=== PATIENT | female | born 1940 | race Caucasian/White ===

== ENCOUNTER 2017-07-18 14:18 | Emergency (ER) | payer MEDICAID, MEDICARE ==
[2017-07-18] MEDS ORDERED: methylPREDNISolone 125 MG* 2 ML VIAL IV ONE (14:31)
[2017-07-18] MEDS ORDERED: Albuterol/Ipratropium NEB.SOL* Albuterol 2.5 MG/Ipratropium 0.5 MG 3 ML INH ONE ×2 (14:31→19:54)
[2017-07-18] MEDS ORDERED: NS 0.9% 1000 ML* 1,000 ML IV SCH (14:45)
[2017-07-18 15:07] LABS: INR 0.82 (0.77-1.02)
[2017-07-18 15:13] LABS: ABS Basophils 0.1 10^3/ul (0-0.2); ABS Eosinophils 0.6 10^3/ul (0-0.6); ABS Lymphocytes 1.4 10^3/ul (1.0-4.8); ABS Monocytes 0.7 10^3/ul (0-0.8); ABS Neutrophils 5.5 10^3/ul (1.5-7.7); ABS Nucleated RBC 0 10^3/ul; Eosinophil % 7.6 % (0-6); Hematocrit 31 % (35-47); Lymphocyte % 16.5 % (25-47); Mean Corpuscular HGB Conc 33 g/dl (31-36); Mean Corpuscular Hemoglobin 26 pg (27-31); Mean Corpuscular Volume 80 fL (80-97); Mean Platelet Volume 6.6 um3 (7.4-10.4); Nucleated Red Blood Cells % 0.1; Platelet Count 508 10^3/ul (150-450); Red Blood Count 3.87 10^6/ul (4.0-5.4); Red Cell Distribution Width 19 % (10.5-15); White Blood Count 8.2 10^3/ul (3.5-10.8)
[2017-07-18 15:16] LABS: EGFR Non-African American 101.6 (>60)
--- NOTE | 2017-07-18 15:51 | RAD ---
HISTORY: Shortness of breath COMPARISONS: December 29, 2013 VIEWS: 1: frontal portable view of the chest at 3:10 PM FINDINGS: LINES AND TUBES: None. CARDIOMEDIASTINAL SILHOUETTE: The cardiac silhouette is mildly enlarged. The cardiomediastinal silhouette is otherwise normal for portable technique. PLEURA: The costophrenic angles are sharp. No pleural abnormalities are noted. LUNG PARENCHYMA: The lungs are clear. ABDOMEN: The upper abdomen is clear. There is no subphrenic gas. Aortic stent graft is noted. BONES AND SOFT TISSUES: No bone or soft tissue abnormalities are noted. IMPRESSION: MILD CARDIOMEGALY
[2017-07-18] MEDS ORDERED: LORazepam INJ* 2 MG/ML 1 ML VIAL IV PUSH ONE (16:02)
[2017-07-18] MEDS ORDERED: Iohexol 300* (CONTRAST) 10 ML SDV IV ONE (16:18)
--- NOTE | 2017-07-18 17:46 | RAD ---
HISTORY: Headache COMPARISONS: None TECHNIQUE: Multiple contiguous axial CT scans were obtained of the head without intravenous contrast. FINDINGS: The study is limited by patient motion artifact. HEMORRHAGE/INFARCT: There is no hemorrhage or acute infarct. MASSES/SHIFT: There is no mass or shift. EXTRA-AXIAL SPACES: There are no extra-axial fluid collections. SULCI AND VENTRICLES: The sulci and ventricles are normal in size and position for the patient's stated age. CEREBRUM: There is hypoattenuation of the periventricular and subcortical white matter. There is a chronic lacunar infarct of left basal ganglia. BRAINSTEM: There are no focal parenchymal abnormalities. CEREBELLUM: There are no focal parenchymal abnormalities. VESSELS: The vessels are grossly normal. PARANASAL SINUSES: The paranasal sinuses are clear. ORBITS: The orbits are unremarkable. BONES AND SOFT TISSUE: No bone or soft tissue abnormalities are noted. OTHER: None IMPRESSION: NO ACUTE INTRACRANIAL PATHOLOGY. CHRONIC SMALL VESSEL ISCHEMIC CHANGE
--- NOTE | 2017-07-18 17:51 | RAD ---
CLINICAL HISTORY: Diffuse tenderness, diverticulitis COMPARISON: None TECHNIQUE: Multiple contiguous axial CT scans were obtained of the abdomen and pelvis after the administration of intravenous contrast. Coronal and sagittal multiplanar reformations are submitted for review. Oral contrast was administered. Delayed images were obtained through the abdomen. FINDINGS: LUNG BASES: The lung bases are clear. LIVER: The liver is normal in shape, size, contour, and attenuation. BILE DUCTS: There is no intrahepatic or extrahepatic biliary dilatation. GALLBLADDER: The gallbladder is normal, without pericholecystic inflammatory change. PANCREAS: The pancreas is normal, without mass or ductal dilatation. SPLEEN: Normal in size and appearance. UPPER GI TRACT: Evaluation of the gastrointestinal tract is limited by incomplete gastric distention. The upper GI tract is unremarkable. SMALL BOWEL AND MESENTERY: The small bowel is normal in contour, course, and caliber. There is no obstruction or dilatation. COLON: The colon is normal in contour, course, caliber. There is no pericolonic inflammatory change. ADRENALS: Normal bilaterally. KIDNEYS: A simple renal cyst is noted on the right. There is no appreciable hydronephrosis or nephrolithiasis. BLADDER: The bladder is smooth in contour. PELVIC ORGANS: The uterus and adnexa are grossly normal for technique. AORTA: The patient is status post aortic stent graft. IVC: Unremarkable LYMPH NODES: There is no lymphadenopathy by size criteria. ABDOMINAL WALL: There is no evidence for abdominal wall hernia. BONES AND SOFT TISSUES: Degenerative changes are noted. OTHER: None IMPRESSION: STATUS POST ABDOMINAL AORTIC STENT GRAFT. NO ACUTE CT PATHOLOGY OF THE VISUALIZED ABDOMEN OR PELVIS.
--- NOTE | 2017-07-18 18:43 | ED ---
Juan Toribio Stephanie, scribed for Phani Andrade on 07/18/17 at 1438 . Complex/Multi-Sys Presentation - HPI Summary HPI Summary: The pt is a 76 y/o F BIBA to the ED with c/o nausea that worsened on 07/12/17. Symptoms include SCHULER, abd pain, neck pain and cough. The pt denies CP. The pt states her symptoms have been chronic over the past 4 years however, all of her symptoms have worsened over the past 6 days. The pt has recently been diagnosed with hyponatremia. - History Of Current Complaint Time Seen by Provider: 07/18/17 14:25 Hx Obtained From: Patient, EMS Onset/Duration: Gradual Onset, Lasting Weeks - 1, Still Present Timing: Constant Severity Currently: Moderate Associated Signs And Symptoms: Positive: Headache, Cough, Abdominal Pain, Other - neck pain. Negative: Chest Pain - Allergies/Home Medications Allergies/Adverse Reactions: Allergies Allergy/AdvReac Type Severity Reaction Status Date / Time Penicillins Allergy Hives Verified 07/18/17 16:43 Home Medications: Home Medications Acetaminophen [Acetaminophen Extra Strength] 1,000 mg PO Q8H 07/18/17 [History Confirmed 07/18/17] Aspirin 81 mg CHEW TAB* [Aspirin Low Dose TAB*] 81 mg PO DAILY 07/18/17 [ History Confirmed 07/18/17] Budesonide NEB* [Pulmicort NEB*] 0.25 mg INH BID 07/18/17 [History Confirmed ] Cholecalciferol TAB* [Vitamin D TAB*] 4,000 unit PO DAILY 07/18/17 [History Confirmed 07/18/17] Levalbuterol 1.25MG/0.5ML NEB* [Xopenex 1.25 MG/0.5 ML NEB.AMIRA*] 1.25 mg INH Q8H 07/18/17 [History Confirmed 07/18/17] Melatonin (NF) [Meladox] 10 mg PO BEDTIME 07/18/17 [History Confirmed 07/18/17] Ondansetron TAB* [Zofran 4 MG Tab*] 4 mg PO Q8H 07/18/17 [History Confirmed ] Ranitidine TAB (NF) [Zantac TAB (NF)] 75 mg PO DAILY 07/18/17 [History Confirmed 07/18/17] Sodium Chloride TAB* 1 gm PO BID 07/18/17 [History Confirmed 07/18/17] Venlafaxine EXT RELEASE CAP* [Effexor Xr CAP*] 75 mg PO DAILY 07/18/17 [History Confirmed 07/18/17] PMH/Surg Hx/FS Hx/Imm Hx Endocrine/Hematology History: Denies: Hx Diabetes Cardiovascular History: Reports: Hx Angina Denies: Hx Hypertension Comment Only: Other Cardiovascular Problems/Disorders - AAA Repair Respiratory History: Reports: Hx Chronic Bronchitis, Hx Chronic Obstructive Pulmonary Disease (COPD) History: Denies: Hx Renal Disease EENT History: Denies: Hx Deafness Psychiatric History: Reports: Hx Anxiety, Hx Depression - Surgical History Surgery Procedure, Year, and Place: AAA repair. appy Hx Anesthesia Reactions: No Infectious Disease History: No Infectious Disease History: Denies: Traveled Outside the [place] in Last 30 Days - Family History Known Family History: Negative: Renal Disease - Social History Occupation: Retired Lives: [facility] Alcohol Use: None Hx Substance Use: No Substance Use Type: Reports: None Hx Tobacco Use: Yes Smoking Status (MU): Former Smoker Amount Used/How Often: 1 PPD Review of Systems Positive: Fever Negative: Chest Pain Positive: Cough Positive: Abdominal Pain, Nausea Positive: Other - neck pain Positive: Headache All Other Systems Reviewed And Are Negative: Yes Physical Exam - Summary Physical Exam Summary: Appearance: Well appearing, no pain distress Skin: warm, dry, reflects adequate perfusion Head/face: normal Eyes: EOMI, ALO ENT: dry mucus membranes Neck: supple, non-tender Respiratory: CTA, breath sounds present Cardiovascular: RRR, pulses symmetrical Abdomen: diffuse abd tenderness, soft Bowel: present Musculoskeletal: normal, strength/ROM intact Neuro: normal, sensory motor intact, A&Ox3 Triage Information Reviewed: Yes Vital Signs On Initial Exam: Initial Vitals Temp Pulse Resp BP Pulse Ox 99.9 F 93 17 145/75 90 07/18/17 14:29 07/18/17 14:29 07/18/17 14:29 07/18/17 14:29 07/18/17 14:29 Vital Signs Reviewed: Yes Diagnostics - Vital Signs Vital Signs Temp Pulse Resp BP Pulse Ox 07/18/17 14:29 99.9 F 93 17 145/75 90 - Laboratory Result Diagrams: 07/18/17 14:50 07/18/17 14:50 Lab Statement: Any lab studies that have been ordered have been reviewed, and results considered in the medical decision making process. - Radiology CXR Xray Interpretation: Positive (See Comments) Radiology Interpretation Completed By: Radiologist - MILD CARDIOMEGALY. ED physician has reviewed this report. - CT Brain CT Interpretation: Positive (See Comments) CT Interpretation Completed By: Radiologist - NO ACUTE INTRACRANIAL PATHOLOGY. CHRONIC SMALL VESSEL ISCHEMIC CHANGE. ED physician has reviewed this report. Abdomen/Pelvis CT Interpretation: No Acute Changes CT Interpretation Completed By: Radiologist - STATUS POST ABDOMINAL AORTIC STENT GRAFT. NO ACUTE CT PATHOLOGY OF THE VISUALIZED ABDOMEN OR PELVIS. ED physician has reviewed this report. - EKG 14:44 Cardiac Rate: NL EKG Rhythm: Sinus Rhythm - [address] Segment: Normal Ectopy: None EKG Interpretation: No acute changes Complex Multi-Symp Course/Dx Course Of Treatment: The pt is a 76 y/o F BIBA to the ED with c/o nausea that worsened on 07/12/17. Symptoms include SCHULER, neck pain and cough. The pt denies CP. The pt has recently been diagnosed with hyponatremia. This pt is a sign out to Dr. Joe at shift change pending UA and MHE. - Diagnoses Provider Diagnoses: Anxiety, Abdominal pain, Depression, Hyponatremia Discharge - Sign-Out/Discharge Documenting (check all that apply): Sign-Out Patient Signing out patient TO: Cece Joe - Pending UA and MHE. - Discharge Plan Condition: Stable Referrals: Nadia Messina PA [Primary Care Provider] - The documentation as recorded by the Juan william Stephanie accurately reflects the service I personally performed and the decisions made by , Phani Andrade.
[2017-07-18 18:48] LABS: Urine Appearance Clear; Urine Blood Negative (Negative); Urine Color Straw; Urine Ketones Negative (Negative); Urine Protein Negative (Negative); Urine Specific Gravity 1.019 (1.010-1.030); Urine Urobilinogen Negative (Negative)
[2017-07-18] MEDS ORDERED: ALPRAZolam TAB* 0.5 MG PO ONE (20:46)
--- NOTE | 2017-07-18 21:55 | ED ---
Flex Toribio Rebecca, scribed for Cece Joe MD on 07/18/17 at 2059 . Progress - Progress Note Progress Note: Pt was signed out by Dr. Andrade, pending disposition, awaiting MHE completion. Course/Dx - Course Course Of Treatment: Pt was signed out by Dr. Andrade, pending disposition, awaiting MHE completion. Upon completion of MHE, it has been determined by Dr. Teran (psychiatrist) that the pt may be D/C with Dx of anxiety. - Diagnoses Provider Diagnoses: Anxiety, Abdominal pain, Depression, Hyponatremia Discharge - Sign-Out/Discharge Documenting (check all that apply): Discharge/Admit/Transfer - Discharge, Receiving Sign-Out Receiving patient FROM: Phani Andrade - Discharge Plan Condition: Stable Disposition: HOME Referrals: Nadia Messina PA [Primary Care Provider] - The documentation as recorded by the Flex william Rebecca accurately reflects the service I personally performed and the decisions made by Tatyana caputo Abdul, MD.
[2017-07-18 22:21] VITALS: BP 97/58
--- NOTE | 2017-07-20 09:02 | PN ---
Progress Note - Progress Note Date of Service: 07/18/17 Note: Urine culture preliminary grew Morganella morganii UA otherwise negative in the ED Will await sensitivities prior to placing on medication. Feli Pelaez PA-C
--- NOTE | 2017-07-21 17:49 | PN ---
Progress Note - Progress Note Date of Service: 07/18/17 Note: Pt. was seen in the ER 07/18/17 for numerous complaints. Urine culture obtained at that time. Urine culture today is growing >100,000 morganella morganii with multi drug resistance. Urinalysis only showed small leukocytes. I spoke with Dr. Andrade, who actually saw pt. at initially visit, and he feels this is most likely a contaminant. No treatment initiated since pt. was asymptomatic.
== END 2017-07-18 22:20 | disposition home or self-care (01) ==
LOC: ED 14:18
DX: F41.9 Anxiety disorder, unspecified (principal); R10.9 Unspecified abdominal pain; F32.9 Major depressive disorder, single episode, unspecified; E87.1 Hypo-osmolality and hyponatremia; I51.7 Cardiomegaly; Z95.828 Presence of other vascular implants and grafts; Z88.0 Allergy status to penicillin; Z87.891 Personal history of nicotine dependence
CPT/HCPCS: 36415; 70450; 71045; 74177; 80053; 81003; 81015; 83605; 83880; 84484; 85025; 85610; 85730; 87077; 87086; 87186; 93005; 96374; 99285; A9270-GY; J2060; J2930; Q9967

== ENCOUNTER 2017-08-17 16:07 | Inpatient (IN) | payer MEDICARE, MEDICAID ==
[2017-08-17] MEDS ORDERED: NS 0.9% 1000 ML* 1,000 ML IV ONE (16:34)
[2017-08-17] MEDS ORDERED: methylPREDNISolone 125 MG* 2 ML VIAL IV ONE (16:34)
[2017-08-17] MEDS ORDERED: Azithromycin IV(*) 500 MG in NS 0.9% 250 ML* 250 ML IVPB ONE (16:34)
[2017-08-17] MEDS ORDERED: Albuterol/Ipratropium NEB.SOL* Albuterol 2.5 MG/Ipratropium 0.5 MG 3 ML INH ONE ×2 (16:34→16:36)
[2017-08-17 17:08] LABS: ABS Basophils 0.1 10^3/ul (0-0.2); ABS Eosinophils 1.2 10^3/ul (0-0.6); ABS Lymphocytes 1.5 10^3/ul (1.0-4.8); ABS Monocytes 0.4 10^3/ul (0-0.8); ABS Neutrophils 6.8 10^3/ul (1.5-7.7); ABS Nucleated RBC 0 10^3/ul; Eosinophil % 12.3 % (0-6); Hematocrit 32 % (35-47); Hemoglobin 10.5 g/dl (12.0-16.0); Lymphocyte % 15.3 % (25-47); Mean Corpuscular HGB Conc 33 g/dl (31-36); Mean Corpuscular Hemoglobin 28 pg (27-31); Mean Corpuscular Volume 84 fL (80-97); Mean Platelet Volume 7.1 um3 (7.4-10.4); Nucleated Red Blood Cells % 0; Platelet Count 472 10^3/ul (150-450); Red Blood Count 3.82 10^6/ul (4.00-5.40); Red Cell Distribution Width 21 % (10.5-15); White Blood Count 10.1 10^3/ul (3.5-10.8)
[2017-08-17 17:20] LABS: INR 0.89 (0.77-1.02)
[2017-08-17 17:23] LABS: Urine Appearance Clear; Urine Blood Negative (Negative); Urine Color Straw; Urine Ketones Negative (Negative); Urine Protein Negative (Negative); Urine Urobilinogen Negative (Negative)
[2017-08-17 17:27] LABS: EGFR Non-African American 58.2 (>60)
--- NOTE | 2017-08-17 17:50 | RAD ---
INDICATION: Fall COMPARISON: CT of the brain July 18, 2017 TECHNIQUE: Contiguous axial sections of the brain were obtained from the skull base to the vertex without contrast. FINDINGS: Image quality is slightly degraded by motion artifact. The ventricles, cisterns and sulci are within normal limits. There is a mild degree of periventricular and subcortical white matter hypoattenuation similar in appearance to the prior CT of the brain and most compatible with mild chronic microvascular disease. The quijano-white matter differentiation is adequately maintained and there is no sulcal effacement. No significant focal abnormality or mass effect is present. There is no evidence for intracranial hemorrhage. No significant focal osseous abnormality is present. The visualized portion of the paranasal sinuses appear clear. The mastoid air cells are well aerated bilaterally. IMPRESSION: Chronic findings as described above unchanged since the July 18, 2017 CT the brain. There is no CT evidence of acute traumatic injury.
--- NOTE | 2017-08-17 17:53 | RAD ---
INDICATION: Cough COMPARISON: Chest x-ray July 18, 2017 TECHNIQUE: PA and lateral views of the chest were obtained. FINDINGS: The heart and mediastinum are normal in size and contour. The lungs are grossly clear. There is no evidence of large pleural effusion. Visualized bones are normal for the patient's age. There is no radiographic evidence of free air beneath the diaphragm Aortic stent graft is again noted in position. IMPRESSION: No radiographic evidence of acute cardiopulmonary disease.
--- NOTE | 2017-08-17 17:57 | RAD ---
INDICATION: Left elbow pain after a fall COMPARISON: None. TECHNIQUE: 4 views left elbow. REPORT: There is a small amount of fluid elevating the anterior fat pad 5 mm. There is no large posterior joint effusion. Degenerative changes include osteophyte formation along the volar margin of the olecranon. There is questionable shortening at the radial head with osteophyte formation along the margin of the radial head. There is no definite dislocated fracture. IMPRESSION: There is questionable shortening of the left radial head potentially an impacted fracture of the bone. There is a small amount of joint fluid but no posterior fusion which is always deemed pathologic. If the patient's symptoms persist further follow-up imaging is recommended.
[2017-08-17] MEDS ORDERED: LORazepam INJ* 2 MG/ML 1 ML VIAL IV PUSH ONE (18:46)
[2017-08-17] MEDS ORDERED: LORazepam INJ* 2 MG/ML 1 ML VIAL ONE (18:47)
--- NOTE | 2017-08-17 19:39 | ED ---
Ian Toribio Jade, scribed for Sterling Nevarez MD on 08/17/17 at 1637 . Complex/Multi-Sys Presentation - HPI Summary HPI Summary: Pt is a 76 y/o female BIBA who presents s/p fall. She states she was using her walker outside today when her daughter tried to help her over a crack in the sidewalk. The pt fell backwards and hit her left elbow and her head. Pt also states she has been coughing up phlegm lately. She is constantly nauseated, and is currently undergoing workup for potential black mold in her brain, that originally started in her lungs. Pt denies any fever, chills, abdominal pain, CP , or LOC. She is currently not in any pain. She has a PMHx of COPD, but is no longer on oxygen. She denies any PMHx of blood clots or DVTs. Pt lives in a alf. She denies any recent antibiotics. - History Of Current Complaint Chief Complaint: EDHeadInjury Time Seen by Provider: 08/17/17 16:16 Hx Obtained From: Patient Onset/Duration: Sudden Onset Timing: Constant Severity Currently: None Associated Signs And Symptoms: Positive: Cough, Nausea. Negative: Chest Pain, Abdominal Pain, Fever - Allergies/Home Medications Allergies/Adverse Reactions: Allergies Allergy/AdvReac Type Severity Reaction Status Date / Time Penicillins Allergy Hives Verified 07/18/17 16:43 Home Medications: Home Medications Acetaminophen [Acetaminophen Extra Strength] 1,000 mg PO BID MDD 3 grams [History Confirmed 08/17/17] Albuterol 2.5MG/3ML (0.083%)* [Ventolin 2.5 MG/3 ML NEB.AMIRA*] 2.5 mg INH Q4H PRN 08/17/17 [History Confirmed 08/17/17] Aspirin EC TAB* [Ecotrin EC Low Dose 81 MG*] 81 mg PO DAILY 08/17/17 [History Confirmed 08/17/17] Aspirin/Acetaminophen/Caffeine [Excedrin Migraine Caplet] 1 tab PO DAILY [History Confirmed 08/17/17] Budesonide NEB* [Pulmicort NEB*] 0.25 mg INH Q12H 08/17/17 [History Confirmed ] Cholecalciferol TAB* [Vitamin D TAB*] 4,000 unit PO DAILY 08/17/17 [History Confirmed 08/17/17] Ipratropium [place] 1 vial INH Q6H 08/17/17 [History Confirmed 08/17/17] LORazepam TAB(*) [Ativan 0.5 MG TAB (*)] 0.5 mg PO Q12H PRN 08/17/17 [History Confirmed 08/17/17] Oral Rinse (Biotene)(NF) [Biotene Dry Mouth Oral Rinse(NF)] 1 spray PO Q4H PRN 08/17/17 [History Confirmed 08/17/17] Ranitidine TAB (NF) [Zantac TAB (NF)] 75 mg PO DAILY 08/17/17 [History Confirmed 08/17/17] Saline NASAL SPRAY 0.65%* [Sodium Chloride 0.65% Nasal [place]*] 2 spray BOTH NARES BID 08/17/17 [History Confirmed 08/17/17] Senna TAB* [Senokot TAB*] 2 tab PO DAILY PRN 08/17/17 [History Confirmed ] Tiotropium CAP.INH* [Spiriva CAP.INH*] 1 cap.inh INH DAILY 08/17/17 [History Confirmed 08/17/17] Venlafaxine EXT RELEASE CAP* [Effexor Xr CAP*] 150 mg PO BEDTIME 08/17/17 [ History Confirmed 08/17/17] clonazePAM TAB(*) [KlonoPIN TAB(*)] 0.5 mg PO BID PRN 08/17/17 [History Confirmed 08/17/17] guaiFENesin LIQ* [Robitussin*] 30 mg PO Q12H PRN 08/17/17 [History Confirmed ] PMH/Surg Hx/FS Hx/Imm Hx Endocrine/Hematology History: Denies: Hx Diabetes Cardiovascular History: Reports: Hx Angina Denies: Hx Hypertension Comment Only: Other Cardiovascular Problems/Disorders - AAA Repair Respiratory History: Reports: Hx Chronic Bronchitis, Hx Chronic Obstructive Pulmonary Disease (COPD) History: Denies: Hx Renal Disease Sensory History: Denies: Hx Deafness Psychiatric History: Reports: Hx Anxiety, Hx Depression Denies: Hx Eating Disorder, Hx of Violent Episodes Against Others - Surgical History Surgery Procedure, Year, and Place: AAA repair. appy Hx Anesthesia Reactions: No Infectious Disease History: No Infectious Disease History: Denies: Traveled Outside the [place] in Last 30 Days - Family History Known Family History: Negative: Renal Disease - Social History Alcohol Use: None Hx Substance Use: No Substance Use Type: Reports: None Hx Tobacco Use: Yes Smoking Status (MU): Former Smoker Amount Used/How Often: 1 PPD Review of Systems Negative: Fever, Chills Negative: Chest Pain Positive: Cough Positive: Nausea. Negative: Abdominal Pain Positive: Bruising - Left elbow Negative: Syncope All Other Systems Reviewed And Are Negative: Yes Physical Exam - Summary Physical Exam Summary: GENERAL: Patient is a well-developed and nourished F who is lying comfortable in the stretcher. Patient is not in any acute respiratory distress. HEAD AND FACE: Normocephalic. EYES: PERRLA, EOMI x 2. EARS: Hearing grossly intact. MOUTH: Oropharynx within normal limits. NECK: Supple, trachea is midline, no adenopathy, no JVD, no carotid bruit. CHEST: Symmetric, no tenderness at palpation LUNGS: Rhonchi throughout with expiratory wheezing. CVS: Regular rate and rhythm, S1 and S2 present, no murmurs or gallops appreciated. ABDOMEN: Soft, non-tender. Bowel sounds are normal. No abdominal abnormal pulsations. EXTREMITIES: Full ROM in all major joints, no edema, no cyanosis or clubbing. NEURO: Alert and oriented x 3. No acute neurological deficits. Speech is normal and follows commands. SKIN: Dry and warm. Abrasion to left elbow with hematoma. Triage Information Reviewed: Yes Vital Signs On Initial Exam: Initial Vitals Temp Pulse Resp BP Pulse Ox 98.7 F 74 15 162/79 96 08/17/17 16:14 08/17/17 16:14 08/17/17 16:14 08/17/17 16:14 08/17/17 16:14 Vital Signs Reviewed: Yes Diagnostics - Vital Signs Vital Signs Temp Pulse Resp BP Pulse Ox 08/17/17 16:22 98.3 F 105 26 150/80 96 08/17/17 16:14 98.7 F 74 15 162/79 96 - Laboratory Lab Results: Lab Results 08/17/17 08/17/17 08/17/17 Range/Units 16:59 16:59 16:59 WBC 10.1 (3.5-10.8) 10^3/ul RBC 3.82 L (4.00-5.40) 10^6/ul Hgb 10.5 L (12.0-16.0) g/dl Hct 32 L (35-47) % MCV 84 (80-97) fL MCH 28 (27-31) pg MCHC 33 (31-36) g/dl RDW 21 H (10.5-15) % Plt Count 472 H (150-450) 10^3/ul MPV 7.1 L (7.4-10.4) um3 Neut % (Auto) 67.6 (38-83) % Lymph % (Auto) 15.3 L (25-47) % Barron % (Auto) 4.2 (0-7) % Eos % (Auto) 12.3 H (0-6) % Baso % (Auto) 0.6 (0-2) % Absolute Neuts (auto) 6.8 (1.5-7.7) 10^3/ul Absolute Lymphs (auto) 1.5 (1.0-4.8) 10^3/ul Absolute Monos (auto) 0.4 (0-0.8) 10^3/ul Absolute Eos (auto) 1.2 H (0-0.6) 10^3/ul Absolute Basos (auto) 0.1 (0-0.2) 10^3/ul Absolute Nucleated RBC 0 10^3/ul Nucleated RBC % 0 INR (Anticoag Therapy) 0.89 (0.77-1.02) APTT 30.6 (26.0-36.3) seconds Sodium (135-145) mmol/L Potassium (3.5-5.0) mmol/L Chloride (101-111) mmol/L Carbon Dioxide (22-32) mmol/L Anion Gap (2-11) mmol/L BUN (6-24) mg/dL Creatinine (0.51-0.95) mg/dL Est GFR ( Amer) (>60) Est GFR (Non-Af Amer) (>60) BUN/Creatinine Ratio (8-20) Glucose (70-100) mg/dL Lactic Acid (0.5-2.0) mmol/L Calcium (8.6-10.3) mg/dL Total Bilirubin (0.2-1.0) mg/dL AST (13-39) U/L ALT (7-52) U/L Alkaline Phosphatase (34-104) U/L Total Creatine Kinase (10-223) U/L Troponin I (<0.04) ng/mL C-Reactive Protein (<8.01) mg/L B-Natriuretic Peptide ( - 100) pg/mL Total Protein (6.4-8.9) g/dL Albumin (3.2-5.2) g/dL Globulin (2-4) g/dL Albumin/Globulin Ratio (1-3) Procalcitonin (<0.6) ng/mL Urine Color Straw Urine Appearance Clear Urine pH 6.0 (5-9) Ur Specific [place] 1.010 (1.010-1.030) Urine Protein Negative (Negative) Urine Ketones Negative (Negative) Urine Blood Negative (Negative) Urine Nitrate Negative (Negative) Urine Bilirubin Negative (Negative) Urine Urobilinogen Negative (Negative) Ur Leukocyte Esterase Negative (Negative) Urine Glucose Negative (Negative) 08/17/17 08/17/17 08/17/17 Range/Units 16:59 16:59 16:59 WBC (3.5-10.8) 10^3/ul RBC (4.00-5.40) 10^6/ul Hgb (12.0-16.0) g/dl Hct (35-47) % MCV (80-97) fL MCH (27-31) pg MCHC (31-36) g/dl RDW (10.5-15) % Plt Count (150-450) 10^3/ul MPV (7.4-10.4) um3 Neut % (Auto) (38-83) % Lymph % (Auto) (25-47) % Barron % (Auto) (0-7) % Eos % (Auto) (0-6) % Baso % (Auto) (0-2) % Absolute Neuts (auto) (1.5-7.7) 10^3/ul Absolute Lymphs (auto) (1.0-4.8) 10^3/ul Absolute Monos (auto) (0-0.8) 10^3/ul Absolute Eos (auto) (0-0.6) 10^3/ul Absolute Basos (auto) (0-0.2) 10^3/ul Absolute Nucleated RBC 10^3/ul Nucleated RBC % INR (Anticoag Therapy) (0.77-1.02) APTT (26.0-36.3) seconds Sodium 135 (135-145) mmol/L Potassium 4.5 (3.5-5.0) mmol/L Chloride 99 L (101-111) mmol/L Carbon Dioxide 28 (22-32) mmol/L Anion Gap 8 (2-11) mmol/L BUN 20 (6-24) mg/dL Creatinine 0.94 (0.51-0.95) mg/dL Est GFR ( Amer) 70.4 (>60) Est GFR (Non-Af Amer) 58.2 (>60) BUN/Creatinine Ratio 21.3 H (8-20) Glucose 114 H (70-100) mg/dL Lactic Acid 1.7 (0.5-2.0) mmol/L Calcium 9.5 (8.6-10.3) mg/dL Total Bilirubin 0.20 (0.2-1.0) mg/dL AST 27 (13-39) U/L ALT 35 (7-52) U/L Alkaline Phosphatase 127 H (34-104) U/L Total Creatine Kinase 39 (10-223) U/L Troponin I 0.01 (<0.04) ng/mL C-Reactive Protein 15.70 H (<8.01) mg/L B-Natriuretic Peptide 19 ( - 100) pg/mL Total Protein 7.6 (6.4-8.9) g/dL Albumin 4.0 (3.2-5.2) g/dL Globulin 3.6 (2-4) g/dL Albumin/Globulin Ratio 1.1 (1-3) Procalcitonin (<0.6) ng/mL Urine Color Urine Appearance Urine pH (5-9) Ur Specific [place] (1.010-1.030) Urine Protein (Negative) Urine Ketones (Negative) Urine Blood (Negative) Urine Nitrate (Negative) Urine Bilirubin (Negative) Urine Urobilinogen (Negative) Ur Leukocyte Esterase (Negative) Urine Glucose (Negative) 08/17/ Range/Units 16:59 WBC (3.5-10.8) 10^3/ul RBC (4.00-5.40) 10^6/ul Hgb (12.0-16.0) g/dl Hct (35-47) % MCV (80-97) fL MCH (27-31) pg MCHC (31-36) g/dl RDW (10.5-15) % Plt Count (150-450) 10^3/ul MPV (7.4-10.4) um3 Neut % (Auto) (38-83) % Lymph % (Auto) (25-47) % [place] % (Auto) (0-7) % Eos % (Auto) (0-6) % Baso % (Auto) (0-2) % Absolute Neuts (auto) (1.5-7.7) 10^3/ul Absolute Lymphs (auto) (1.0-4.8) 10^3/ul Absolute Monos (auto) (0-0.8) 10^3/ul Absolute Eos (auto) (0-0.6) 10^3/ul Absolute Basos (auto) (0-0.2) 10^3/ul Absolute Nucleated RBC 10^3/ul Nucleated RBC % INR (Anticoag Therapy) (0.77-1.02) APTT (26.0-36.3) seconds Sodium (135-145) mmol/L Potassium (3.5-5.0) mmol/L Chloride (101-111) mmol/L Carbon Dioxide (22-32) mmol/L Anion Gap (2-11) mmol/L BUN (6-24) mg/dL Creatinine (0.51-0.95) mg/dL Est GFR ( Amer) (>60) Est GFR (Non-Af Amer) (>60) BUN/Creatinine Ratio (8-20) Glucose (70-100) mg/dL Lactic Acid (0.5-2.0) mmol/L Calcium (8.6-10.3) mg/dL Total Bilirubin (0.2-1.0) mg/dL AST (13-39) U/L ALT (7-52) U/L Alkaline Phosphatase (34-104) U/L Total Creatine Kinase (10-223) U/L Troponin I (<0.04) ng/mL C-Reactive Protein (<8.01) mg/L B-Natriuretic Peptide ( - 100) pg/mL Total Protein (6.4-8.9) g/dL Albumin (3.2-5.2) g/dL Globulin (2-4) g/dL Albumin/Globulin Ratio (1-3) Procalcitonin < 0.1 (<0.6) ng/mL Urine Color Urine Appearance Urine pH (5-9) Ur Specific [place] (1.010-1.030) Urine Protein (Negative) Urine Ketones (Negative) Urine Blood (Negative) Urine Nitrate (Negative) Urine Bilirubin (Negative) Urine Urobilinogen (Negative) Ur Leukocyte Esterase (Negative) Urine Glucose (Negative) Result Diagrams: 08/17/17 16:59 08/17/17 16:59 Lab Statement: Any lab studies that have been ordered have been reviewed, and results considered in the medical decision making process. - Radiology Elbow XR Xray Interpretation: Positive (See Comments) - 16:34: There is questionable shortening of the left radial head potentially an impacted fracture of the bone. There is a small amount of joint fluid but no posterior fusion which is always deemed pathologic. ED physician reviewed radiology report. Radiology Interpretation Completed By: Radiologist CXR Xray Interpretation: No Acute Changes - 16:33: No radiographic evidence of acute cardiopulmonary disease. ED physician reviewed radiology report. Radiology Interpretation Completed By: Radiologist - CT Brain CT CT Interpretation: No Acute Changes - 16:34: Chronic findings as described above unchanged since the July 18, 2017 CT the brain. There is no CT evidence of acute traumatic injury. ED physician reviewed radiology report. CT Interpretation Completed By: Radiologist Complex Multi-Symp Course/Dx Course Of Treatment: Pt is a 76 y/o female BIBA who presents s/p fall. She states she was using her walker outside today when her daughter tried to help her over a crack in the sidewalk. The pt fell backwards and hit her left elbow and her head. Pt also states she has been coughing up phlegm lately. She is constantly nauseated, and is currently undergoing workup for potential black mold in her brain, that originally started in her lungs. Pt denies any fever, chills, abdominal pain, CP, or LOC. She is currently not in any pain. She has a PMHx of COPD, but is no longer on oxygen. She denies any PMHx of blood clots or DVTs. Pt lives in a alf. She denies any recent antibiotics. A physical exam revealed rhonchi throughout with expiratory wheezing and an abrasion to left elbow with hematoma. An elbow XR revealed questionable shortening of the left radial head potentially an impacted fracture of the bone, and a small amount of joint fluid but no posterior fusion which is always deemed pathologic. A CXR revealed no radiographic evidence of acute cardiopulmonary disease. A brain CT revealed chronic findings as described above unchanged since the July 18, 2017 CT the brain, and no CT evidence of acute traumatic injury. Final dx are fall and COPD exacerbation. Dr. Egan accepts pt for admission. - Diagnoses Provider Diagnoses: COPD exacerbation, Fall - Physician Notifications Discussed Care Of Patient With: Kenneth Egan Time Discussed With Above Provider: 19:05 Instructed by Provider To: Other - Dr. Egan accepts pt for admission. Discharge - Sign-Out/Discharge Documenting (check all that apply): Discharge/Admit/Transfer - Admit - Discharge Plan Condition: Stable Disposition: ADMITTED TO [facility] Referrals: [facility] [place] PHYSICIAN REFERRAL [Outside] - Billing Disposition and Condition Condition: STABLE Disposition: Admitted to [facility] The documentation as recorded by the Ian william Jade accurately reflects the service I personally performed and the decisions made by , Sterling Nevarez MD.
[2017-08-17] MEDS ORDERED: Albuterol 2.5 MG/3 ML NEB.SOL* (0.083%) INH PRN (21:48)
[2017-08-17] MEDS ORDERED: Melatonin 3 MG TAB PO PRN (21:48)
[2017-08-17] MEDS ORDERED: Acetaminophen TAB* 325 MG PO PRN (21:48)
[2017-08-17] MEDS ORDERED: NS 0.9% 1000 ML* 1,000 ML IV SCH (22:00)
[2017-08-17] MEDS ORDERED: Spiriva Inhaler DEVICE* 1 EACH DEVICE SCH (22:00)
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
[2017-08-17] MEDS ORDERED: LORazepam TAB(*) 0.5 MG PO PRN (22:06)
[2017-08-18] MEDS: methylPREDNISolone SOD 40 MG* 1 ML VIAL IV SCH ×2 (00:03→08:37)
[2017-08-18] MEDS: Albuterol 2.5 MG/3 ML NEB.SOL* (0.083%) INH SCH ×3 (01:23→14:30)
[2017-08-18] MEDS: Heparin VIAL(*) 5000 UNITS/ML VIAL (FIVE THOUSAND) SUBCUT SCH ×4 (05:19→20:01)
[2017-08-18] MEDS: Omeprazole CAP* 20 MG PO SCH (05:19)
[2017-08-18] MEDS: oxyCODONE TAB* 5 MG TAB PO PRN ×3 (05:19→20:31)
[2017-08-18 08:11] LABS: ABS Basophils 0 10^3/ul (0-0.2); ABS Eosinophils 0 10^3/ul (0-0.6); ABS Lymphocytes 0.7 10^3/ul (1.0-4.8); ABS Monocytes 0.1 10^3/ul (0-0.8); ABS Neutrophils 4.4 10^3/ul (1.5-7.7); ABS Nucleated RBC 0 10^3/ul; Eosinophil % 0.2 % (0-6); Hematocrit 29 % (35-47); Hemoglobin 9.8 g/dl (12.0-16.0); Lymphocyte % 12.6 % (25-47); Mean Corpuscular HGB Conc 34 g/dl (31-36); Mean Corpuscular Hemoglobin 28 pg (27-31); Mean Corpuscular Volume 82 fL (80-97); Mean Platelet Volume 7.4 um3 (7.4-10.4); Nucleated Red Blood Cells % 0; Platelet Count 448 10^3/ul (150-450); Red Blood Count 3.56 10^6/ul (4.00-5.40); Red Cell Distribution Width 21 % (10.5-15); White Blood Count 5.2 10^3/ul (3.5-10.8)
[2017-08-18 08:24] LABS: EGFR Non-African American 84.6 (>60)
[2017-08-18] MEDS: Aspirin EC TAB* 81 MG TAB.EC PO SCH (08:44)
[2017-08-18] MEDS: Docusate CAP* 100 MG PO SCH ×2 (08:45→20:31)
[2017-08-18] MEDS: Famotidine TAB* 20 MG PO SCH (08:45)
[2017-08-18] MEDS: traMADol TAB* 50 MG PO PRN (08:55)
[2017-08-18] MEDS ORDERED: Tiotropium CAP.INH* CAP.INH/18 MCG (USE ORDER SET !) INH SCH (09:00)
[2017-08-18] MEDS: Mometasone/Formoter 200/5 MDI INH SCH ×2 (10:10→20:54)
[2017-08-18] MEDS: Tiotropium CAP.INH* CAP.INH/18 MCG (USE ORDER SET !) INH SCH (10:11)
--- NOTE | 2017-08-18 12:49 | PN ---
Subjective Date of Service: 08/18/17 Interval History: Patient reports she feels "a little worse today but dont know why". She rpeorts poor appetite. No nausea or vomiting. No abdominal pain. Reports normal bowel movement this morning. She reports she was coughing and bringing up sputum but now that has improved. She denies any pain. No SOB/CP. Denies SCHULER/bodyaches/ weakness. No urinary symptoms. She is unable to tell me why she is feeling worse today. She is noted to be forgetful but is able to tell me where she lives and who the president was. She feels a little anxious being in the hospital. Objective Active Medications: Acetaminophen (Tylenol Tab*) 650 mg PO Q6H PRN PRN Reason: FEVER/PAIN Albuterol (Ventolin 2.5 Mg/3 Ml Neb.Hanna*) 2.5 mg INH Q2H PRN PRN Reason: SOB/WHEEZING Albuterol (Ventolin 2.5 Mg/3 Ml Neb.Hanna*) 2.5 mg INH [id number] AWAKE [facility] Last Admin: 08/18/17 10:17 Dose: Not Given Aspirin (Aspirin Ec Tab*) 81 mg PO DAILY [facility] Last Admin: 08/18/17 08:44 Dose: 81 mg Azithromycin (Zithromax Tab*) 250 mg PO 1800 [facility] Stop: 08/21/17 18:01 Device (Tiotropium Inhaler Device*) 1 each .SEE ORDER .USE w/ SPIRIVA CAPS [facility] Docusate Sodium (Colace Cap*) 200 mg PO BID [facility] Last Admin: 08/18/17 08:45 Dose: 200 mg Famotidine (Pepcid Tab*) 10 mg PO DAILY [facility]; Protocol Last Admin: 08/18/17 08:45 Dose: 10 mg Heparin Sodium (Porcine) (Heparin Vial(*)) 5,000 units SUBCUT Q8HR [facility] Last Admin: 08/18/17 05:19 Dose: 5,000 units Sodium Chloride (Ns 0.9% 1000 Ml*) 1,000 mls @ 50 mls/hr IV PER RATE [facility] Last Admin: 08/18/17 00:04 Dose: 50 mls/hr Lorazepam (Ativan Tab(*)) 0.5 mg PO Q12H PRN PRN Reason: ANXIETY Melatonin (Melatonin) 3 mg PO BEDTIME PRN; Protocol PRN Reason: Sleep Methylprednisolone Sodium Succinate (Solu-Medrol 40 Mg) 40 mg IV Q8H [facility] Last Admin: 08/18/17 08:37 Dose: 40 mg Mometasone Furoate/Formoterol Fumar (Dulera 200/5 Mdi*) 2 puff INH BID [facility] Last Admin: 08/18/17 10:10 Dose: 2 puff Omeprazole (Prilosec Cap*) 20 mg PO DAILY@0600 [facility] Last Admin: 08/18/17 05:19 Dose: 20 mg Ondansetron HCl (Zofran Odt Tab*) 4 mg PO Q6H PRN PRN Reason: n/v Oxycodone HCl (Roxycodone Tab*) 5 mg PO Q4H PRN PRN Reason: PAIN Last Admin: 08/18/17 05:19 Dose: 5 mg Tiotropium [place] (Spiriva Cap.Inh*) 1 cap INH DAILY [facility] Last Admin: 08/18/17 10:11 Dose: 1 cap Tramadol HCl (Ultram*) 50 mg PO Q6H PRN PRN Reason: PAIN Last Admin: 08/18/17 08:55 Dose: 50 mg Venlafaxine HCl (Effexor Xr Cap*) 150 mg PO BEDTIME [facility] Vital Signs - 8 hr 08/18/17 08/18/17 08/18/17 05:19 08:55 10:18 Pulse Rate 100 Respiratory 20 18 24 Rate O2 Sat by Pulse 94 Oximetry 08/18/17 11:11 Pulse Rate Respiratory 16 Rate O2 Sat by Pulse Oximetry Oxygen Devices in Use Now: Nasal Cannula Appearance: 76 yo female laying in bed in NAD. A+O x3 - slightly anxious Eyes: No Scleral Icterus, PERRLA Ears/Nose/Mouth/Throat: NL Teeth, Lips, Gums, Mucous Membranes Moist Neck: NL Appearance and Movements; NL JVP Respiratory: Symmetrical Chest Expansion and Respiratory Effort, - - left lower rhonchi otherwise clear throughout Cardiovascular: NL Sounds; No Murmurs; No JVD, RRR, No Edema Abdominal: NL Sounds; No Tenderness; No Distention, - - obese Extremities: No Edema, No Clubbing, Cyanosis Skin: No Rash or Ulcers, No Nodules or Sclerosis Neurological: Alert and Oriented x 3, NL Sensation, NL Gait, NL Muscle Strength and Tone Lines/Tubes/Other Access: Clean, Dry and Intact Peripheral IV Nutrition: Taking PO's Result Diagrams: 08/18/17 07:41 08/18/17 07:41 Additional Lab and Data: Lab Results 08/17/17 08/17/17 08/17/17 Range/Units 16:59 16:59 16:59 WBC 10.1 (3.5-10.8) 10^3/ul RBC 3.82 L (4.00-5.40) 10^6/ul Hgb 10.5 L (12.0-16.0) g/dl Hct 32 L (35-47) % MCV 84 (80-97) fL MCH 28 (27-31) pg MCHC 33 (31-36) g/dl RDW 21 H (10.5-15) % Plt Count 472 H (150-450) 10^3/ul MPV 7.1 L (7.4-10.4) um3 Neut % (Auto) 67.6 (38-83) % Lymph % (Auto) 15.3 L (25-47) % [place] % (Auto) 4.2 (0-7) % Eos % (Auto) 12.3 H (0-6) % Baso % (Auto) 0.6 (0-2) % Absolute Neuts (auto) 6.8 (1.5-7.7) 10^3/ul Absolute Lymphs (auto) 1.5 (1.0-4.8) 10^3/ul Absolute Monos (auto) 0.4 (0-0.8) 10^3/ul Absolute Eos (auto) 1.2 H (0-0.6) 10^3/ul Absolute Basos (auto) 0.1 (0-0.2) 10^3/ul Absolute Nucleated RBC 0 10^3/ul Nucleated RBC % 0 INR (Anticoag Therapy) 0.89 (0.77-1.02) APTT 30.6 (26.0-36.3) seconds Sodium (135-145) mmol/L Potassium (3.5-5.0) mmol/L Chloride (101-111) mmol/L Carbon Dioxide (22-32) mmol/L Anion Gap (2-11) mmol/L BUN (6-24) mg/dL Creatinine (0.51-0.95) mg/dL Est GFR ( Amer) (>60) Est GFR (Non-Af Amer) (>60) BUN/Creatinine Ratio (8-20) Glucose (70-100) mg/dL Lactic Acid (0.5-2.0) mmol/L Calcium (8.6-10.3) mg/dL Total Bilirubin (0.2-1.0) mg/dL AST (13-39) U/L ALT (7-52) U/L Alkaline Phosphatase (34-104) U/L Total Creatine Kinase (10-223) U/L Troponin I (<0.04) ng/mL C-Reactive Protein (<8.01) mg/L B-Natriuretic Peptide ( - 100) pg/mL Total Protein (6.4-8.9) g/dL Albumin (3.2-5.2) g/dL Globulin (2-4) g/dL Albumin/Globulin Ratio (1-3) Procalcitonin (<0.6) ng/mL Urine Color Straw Urine Appearance Clear Urine pH 6.0 (5-9) Ur Specific [place] 1.010 (1.010-1.030) Urine Protein Negative (Negative) Urine Ketones Negative (Negative) Urine Blood Negative (Negative) Urine Nitrate Negative (Negative) Urine Bilirubin Negative (Negative) Urine Urobilinogen Negative (Negative) Ur Leukocyte Esterase Negative (Negative) Urine Glucose Negative (Negative) 08/17/17 08/17/17 08/17/17 Range/Units 16:59 16:59 16:59 WBC (3.5-10.8) 10^3/ul RBC (4.00-5.40) 10^6/ul Hgb (12.0-16.0) g/dl Hct (35-47) % MCV (80-97) fL MCH (27-31) pg MCHC (31-36) g/dl RDW (10.5-15) % Plt Count (150-450) 10^3/ul MPV (7.4-10.4) um3 Neut % (Auto) (38-83) % Lymph % (Auto) (25-47) % [place] % (Auto) (0-7) % Eos % (Auto) (0-6) % Baso % (Auto) (0-2) % Absolute Neuts (auto) (1.5-7.7) 10^3/ul Absolute Lymphs (auto) (1.0-4.8) 10^3/ul Absolute Monos (auto) (0-0.8) 10^3/ul Absolute Eos (auto) (0-0.6) 10^3/ul Absolute Basos (auto) (0-0.2) 10^3/ul Absolute Nucleated RBC 10^3/ul Nucleated RBC % INR (Anticoag Therapy) (0.77-1.02) APTT (26.0-36.3) seconds Sodium 135 (135-145) mmol/L Potassium 4.5 (3.5-5.0) mmol/L Chloride 99 L (101-111) mmol/L Carbon Dioxide 28 (22-32) mmol/L Anion Gap 8 (2-11) mmol/L BUN 20 (6-24) mg/dL Creatinine 0.94 (0.51-0.95) mg/dL Est GFR ( Amer) 70.4 (>60) Est GFR (Non-Af Amer) 58.2 (>60) BUN/Creatinine Ratio 21.3 H (8-20) Glucose 114 H (70-100) mg/dL Lactic Acid 1.7 (0.5-2.0) mmol/L Calcium 9.5 (8.6-10.3) mg/dL Total Bilirubin 0.20 (0.2-1.0) mg/dL AST 27 (13-39) U/L ALT 35 (7-52) U/L Alkaline Phosphatase 127 H (34-104) U/L Total Creatine Kinase 39 (10-223) U/L Troponin I 0.01 (<0.04) ng/mL C-Reactive Protein 15.70 H (<8.01) mg/L B-Natriuretic Peptide 19 ( - 100) pg/mL Total Protein 7.6 (6.4-8.9) g/dL Albumin 4.0 (3.2-5.2) g/dL Globulin 3.6 (2-4) g/dL Albumin/Globulin Ratio 1.1 (1-3) Procalcitonin (<0.6) ng/mL Urine Color Urine Appearance Urine pH (5-9) Ur Specific [place] (1.010-1.030) Urine Protein (Negative) Urine Ketones (Negative) Urine Blood (Negative) Urine Nitrate (Negative) Urine Bilirubin (Negative) Urine Urobilinogen (Negative) Ur Leukocyte Esterase (Negative) Urine Glucose (Negative) 08/17/17 Range/Units 16:59 WBC (3.5-10.8) 10^3/ul RBC (4.00-5.40) 10^6/ul Hgb (12.0-16.0) g/dl Hct (35-47) % MCV (80-97) fL MCH (27-31) pg MCHC (31-36) g/dl RDW (10.5-15) % Plt Count (150-450) 10^3/ul MPV (7.4-10.4) um3 Neut % (Auto) (38-83) % Lymph % (Auto) (25-47) % [place] % (Auto) (0-7) % Eos % (Auto) (0-6) % Baso % (Auto) (0-2) % Absolute Neuts (auto) (1.5-7.7) 10^3/ul Absolute Lymphs (auto) (1.0-4.8) 10^3/ul Absolute Monos (auto) (0-0.8) 10^3/ul Absolute Eos (auto) (0-0.6) 10^3/ul Absolute Basos (auto) (0-0.2) 10^3/ul Absolute Nucleated RBC 10^3/ul Nucleated RBC % INR (Anticoag Therapy) (0.77-1.02) APTT (26.0-36.3) seconds Sodium (135-145) mmol/L Potassium (3.5-5.0) mmol/L Chloride (101-111) mmol/L Carbon Dioxide (22-32) mmol/L Anion Gap (2-11) mmol/L BUN (6-24) mg/dL Creatinine (0.51-0.95) mg/dL Est GFR ( Amer) (>60) Est GFR (Non-Af Amer) (>60) BUN/Creatinine Ratio (8-20) Glucose (70-100) mg/dL Lactic Acid (0.5-2.0) mmol/L Calcium (8.6-10.3) mg/dL Total Bilirubin (0.2-1.0) mg/dL AST (13-39) U/L ALT (7-52) U/L Alkaline Phosphatase (34-104) U/L Total Creatine Kinase (10-223) U/L Troponin I (<0.04) ng/mL C-Reactive Protein (<8.01) mg/L B-Natriuretic Peptide ( - 100) pg/mL Total Protein (6.4-8.9) g/dL Albumin (3.2-5.2) g/dL Globulin (2-4) g/dL Albumin/Globulin Ratio (1-3) Procalcitonin < 0.1 (<0.6) ng/mL Urine Color Urine Appearance Urine pH (5-9) Ur Specific [place] (1.010-1.030) Urine Protein (Negative) Urine Ketones (Negative) Urine Blood (Negative) Urine Nitrate (Negative) Urine Bilirubin (Negative) Urine Urobilinogen (Negative) Ur Leukocyte Esterase (Negative) Urine Glucose (Negative) Microbiology and Other Data: Microbiology 08/17/17 22:24 Nasal Screen MRSA (PCR) - Final Nasal Mrsa Not Detected Assess/Plan/Problems-Billing Assessment: 76 yo female with a PMH of COPD, anxiety/depression who presents to the ED on 08/17 for after a mechanical fall from a sitting position who was found to meet SIRs criteria secondary to COPD exacerbation, and a impacted L radial head FX. - Patient Problems (1) SIRS (systemic inflammatory response syndrome) Comment: - suspect COPD exacerbation vs bronchitis. - resolving - continues to be mildly tachycardic but is on IV solumedrol which I think is making her very anxious and possibly tachy. No tachypnea noted. No leukocytosis or lactic acidosis. - blood cx NGD 1 (2) COPD exacerbation Comment: - improving. Titrate O2 down as tolerates with goal O2 sat 90-94% - DC solumedrol, start PO prednisone 40 mg daily for 5 days. - continue azithromycin (3) Radial head fracture Comment: - Orth consult pending. Discussed over phone. Continue sling. - pt has no pain. Treat with APAP as needed (4) Depression Comment: - with anxiety - continue ativan, hold klonopin, and increase Ativan to TID. - continue Effexor (5) DVT prophylaxis Comment: HSQ (6) DNR (do not resuscitate) Status and Disposition: inpatient. DC to home when medically stable
[2017-08-18] MEDS: Ondansetron ODT TAB* 4 MG PO PRN ×2 (13:10→20:01)
[2017-08-18] MEDS ORDERED: Senna TAB PO PRN (17:07)
[2017-08-18] MEDS ORDERED: guaiFENesin LIQ* 100 MG/5 ML UDC PO PRN (17:07)
[2017-08-18] MEDS ORDERED: clonazePAM TAB(*) 0.5 MG PO PRN (17:07)
[2017-08-18] MEDS: Azithromycin TAB* 250 MG PO SCH (17:31)
[2017-08-18] MEDS: Venlafaxine EXT RELEASE CAP* 75 MG PO SCH (20:31)
[2017-08-18] MEDS: LORazepam TAB(*) 0.5 MG PO PRN (23:52)
--- NOTE | 2017-08-19 04:28 | CONS ---
CONSULTATION REPORT: DATE OF CONSULT: 08/18/17 CHIEF COMPLAINT: Left elbow pain. HISTORY OF PRESENT ILLNESS: La is a 76-year-old woman who fell and injured her left elbow. She also has complaints of headache and was admitted for treatment and evaluation after a fall. She had an x-ray of her left elbow which was read to show possible impacted fracture of the radial neck. She has been placed in the sling and I was asked to evaluate her. PHYSICAL EXAMINATION: She is an elderly woman, lying in bed in moderate distress at rest. She complains of headache and not feeling well. She says her elbow does not hurt very much at all. On examination on her left elbow, she has a large ecchymosis at the posterior aspect of the elbow, where she has full range of motion in flexion, extension, pronation, and supination. She has no tenderness about the distal humerus, radial head or olecranon. Her neurovascular function is intact. DIAGNOSTIC STUDIES/LAB DATA: I reviewed her x-rays AP, lateral, and 2 obliques of the left elbow which do not show a definite fracture, but do show perhaps some impaction at the radial neck, perhaps also just some osteophytes. IMPRESSION: Left elbow injury with more likely a contusion than a fracture. PLAN: I do not think a sling is necessary. She can use her arm as tolerated. I encouraged her to do range of motion of her elbow on a regular basis and I can see her back in followup as needed if she has persistent difficulty at discharge. [id number]/CPS #: [id number] [id number]
[2017-08-19] MEDS: Omeprazole CAP* 20 MG PO SCH (05:28)
[2017-08-19] MEDS: Heparin VIAL(*) 5000 UNITS/ML VIAL (FIVE THOUSAND) SUBCUT SCH ×3 (05:29→20:13)
[2017-08-19 07:00] LABS: ABS Basophils 0 10^3/ul (0-0.2); ABS Eosinophils 0.2 10^3/ul (0-0.6); ABS Lymphocytes 1.4 10^3/ul (1.0-4.8); ABS Monocytes 0.8 10^3/ul (0-0.8); ABS Nucleated RBC 0 10^3/ul; Eosinophil % 1.7 % (0-6); Hematocrit 29 % (35-47); Hemoglobin 9.5 g/dl (12.0-16.0); Lymphocyte % 15.2 % (25-47); Mean Corpuscular HGB Conc 33 g/dl (31-36); Mean Corpuscular Hemoglobin 27 pg (27-31); Mean Corpuscular Volume 82 fL (80-97); Mean Platelet Volume 7.5 um3 (7.4-10.4); Nucleated Red Blood Cells % 0; Platelet Count 455 10^3/ul (150-450); Red Blood Count 3.55 10^6/ul (4.00-5.40); Red Cell Distribution Width 21 % (10.5-15); White Blood Count 9.5 10^3/ul (3.5-10.8)
[2017-08-19 07:19] LABS: EGFR Non-African American 92.4 (>60)
[2017-08-19] MEDS: Tiotropium CAP.INH* CAP.INH/18 MCG (USE ORDER SET !) INH SCH (07:47)
[2017-08-19] MEDS: Mometasone/Formoter 200/5 MDI INH SCH ×2 (07:48→20:44)
[2017-08-19] MEDS ORDERED: Olopatadine 0.1% OPHTH (NF) 1 DROP BTL BOTH EYES SCH (09:00)
[2017-08-19] MEDS: Ondansetron ODT TAB* 4 MG PO PRN ×2 (09:48→18:08)
[2017-08-19] MEDS: traMADol TAB* 50 MG PO PRN (10:37)
[2017-08-19] MEDS: Docusate CAP* 100 MG PO SCH ×2 (10:39→20:13)
[2017-08-19] MEDS: predniSONE TAB* 20 MG PO SCH (10:39)
[2017-08-19] MEDS: Aspirin EC TAB* 81 MG TAB.EC PO SCH (10:39)
[2017-08-19] MEDS: Famotidine TAB* 20 MG PO SCH (10:39)
--- NOTE | 2017-08-19 13:07 | PN ---
Subjective Date of Service: 08/19/17 Interval History: Patient reports she feels better today but still feels weak and has harsh cough , increased sputum production today. no fever/chills/ Improved appetite today but has not been drinking a lot of fluids. Daughter at bedside who states her mother recently went to a different shelter and they changed a lot of her respiratory medications which was a concern as she has improved after being treated by Dr. Rodriguez and was placed on standing BID nebs. Pt reports left elbow appears to be less swollen today. Reports mild tenderness Objective Active Medications: Acetaminophen (Tylenol Tab*) 650 mg PO Q6H PRN PRN Reason: FEVER/PAIN Albuterol (Ventolin 2.5 Mg/3 Ml Neb.Hanna*) 2.5 mg INH Q2H PRN PRN Reason: SOB/WHEEZING Aspirin (Aspirin Ec Tab*) 81 mg PO DAILY [facility] Last Admin: 08/19/17 10:39 Dose: 81 mg Azithromycin (Zithromax Tab*) 250 mg PO 1800 [facility] Stop: 08/21/17 18:01 Last Admin: 08/18/17 17:31 Dose: 250 mg Device (Tiotropium Inhaler Device*) 1 each .SEE ORDER .USE w/ SPIRIVA CAPS [facility] Docusate Sodium (Colace Cap*) 200 mg PO BID [facility] Last Admin: 08/19/17 10:39 Dose: 200 mg Famotidine (Pepcid Tab*) 10 mg PO DAILY [facility]; Protocol Last Admin: 08/19/17 10:39 Dose: 10 mg Guaifenesin (Robitussin*) 5 ml PO Q12H PRN PRN Reason: COUGH Heparin Sodium (Porcine) (Heparin Vial(*)) 5,000 units SUBCUT Q8HR [facility] Last Admin: 08/19/17 05:29 Dose: 5,000 units Lorazepam (Ativan Tab(*)) 0.5 mg PO Q8H PRN PRN Reason: ANXIETY Last Admin: 08/18/17 23:52 Dose: 0.5 mg Melatonin (Melatonin) 3 mg PO BEDTIME PRN; Protocol PRN Reason: Sleep Mometasone Furoate/Formoterol Fumar (Dulera 200/5 Mdi*) 2 puff INH BID [facility] Last Admin: 08/19/17 07:48 Dose: 2 puff Omeprazole (Prilosec Cap*) 20 mg PO DAILY@0600 [facility] Last Admin: 08/19/17 05:28 Dose: 20 mg Ondansetron HCl (Zofran Odt Tab*) 4 mg PO Q6H PRN PRN Reason: n/v Last Admin: 08/19/17 09:48 Dose: 4 mg Oxycodone HCl (Roxycodone Tab*) 5 mg PO Q6H PRN PRN Reason: PAIN Prednisone (Deltasone Tab*) 40 mg PO DAILY [facility] Last Admin: 08/19/17 10:39 Dose: 40 mg Senna (Senokot Tab*) 2 tab PO DAILY PRN PRN Reason: CONSTIPATION Tiotropium [place] (Spiriva Cap.Inh*) 1 cap INH DAILY [facility] Last Admin: 08/19/17 07:47 Dose: 1 cap Tramadol HCl (Ultram*) 50 mg PO Q6H PRN PRN Reason: PAIN Last Admin: 08/19/17 10:37 Dose: 50 mg Venlafaxine HCl (Effexor Xr Cap*) 150 mg PO BEDTIME [facility] Last Admin: 08/18/17 20:31 Dose: 150 mg Vital Signs - 8 hr 08/19/17 08/19/17 08/19/17 08:04 10:37 11:15 Temperature 98.0 F 98.9 F Pulse Rate 92 90 Respiratory 20 20 20 Rate Blood Pressure 115/60 114/60 (mmHg) O2 Sat by Pulse 96 Oximetry Oxygen Devices in Use Now: Nasal Cannula Appearance: elderly female A+Ox3 in NAD. Eyes: No Scleral Icterus, PERRLA Ears/Nose/Mouth/Throat: NL Teeth, Lips, Gums, Mucous Membranes Moist Neck: NL Appearance and Movements; NL JVP Respiratory: Symmetrical Chest Expansion and Respiratory Effort, - - course rhonchi bilaterally - clears with cough. No wheezing noted Cardiovascular: NL Sounds; No Murmurs; No JVD, RRR, No Edema Abdominal: NL Sounds; No Tenderness; No Distention Extremities: - - left eldow is mildly swollen, tender, color is yeallow, greenish, purple - appears to be healing Skin: No Rash or Ulcers, No Nodules or Sclerosis Neurological: Alert and Oriented x 3, NL Sensation, NL Muscle Strength and Tone Lines/Tubes/Other Access: Clean, Dry and Intact Peripheral IV Nutrition: Taking PO's Result Diagrams: 08/19/17 06:33 08/19/17 06:33 Additional Lab and Data: Lab Results 08/17/17 08/17/17 08/17/17 Range/Units 16:59 16:59 16:59 WBC 10.1 (3.5-10.8) 10^3/ul RBC 3.82 L (4.00-5.40) 10^6/ul Hgb 10.5 L (12.0-16.0) g/dl Hct 32 L (35-47) % MCV 84 (80-97) fL MCH 28 (27-31) pg MCHC 33 (31-36) g/dl RDW 21 H (10.5-15) % Plt Count 472 H (150-450) 10^3/ul MPV 7.1 L (7.4-10.4) um3 Neut % (Auto) 67.6 (38-83) % Lymph % (Auto) 15.3 L (25-47) % Evangeline % (Auto) 4.2 (0-7) % Eos % (Auto) 12.3 H (0-6) % Baso % (Auto) 0.6 (0-2) % Absolute Neuts (auto) 6.8 (1.5-7.7) 10^3/ul Absolute Lymphs (auto) 1.5 (1.0-4.8) 10^3/ul Absolute Monos (auto) 0.4 (0-0.8) 10^3/ul Absolute Eos (auto) 1.2 H (0-0.6) 10^3/ul Absolute Basos (auto) 0.1 (0-0.2) 10^3/ul Absolute Nucleated RBC 0 10^3/ul Nucleated RBC % 0 INR (Anticoag Therapy) 0.89 (0.77-1.02) APTT 30.6 (26.0-36.3) seconds Sodium (135-145) mmol/L Potassium (3.5-5.0) mmol/L Chloride (101-111) mmol/L Carbon Dioxide (22-32) mmol/L Anion Gap (2-11) mmol/L BUN (6-24) mg/dL Creatinine (0.51-0.95) mg/dL Est GFR ( Amer) (>60) Est GFR (Non-Af Amer) (>60) BUN/Creatinine Ratio (8-20) Glucose (70-100) mg/dL Lactic Acid (0.5-2.0) mmol/L Calcium (8.6-10.3) mg/dL Total Bilirubin (0.2-1.0) mg/dL AST (13-39) U/L ALT (7-52) U/L Alkaline Phosphatase (34-104) U/L Total Creatine Kinase (10-223) U/L Troponin I (<0.04) ng/mL C-Reactive Protein (<8.01) mg/L B-Natriuretic Peptide ( - 100) pg/mL Total Protein (6.4-8.9) g/dL Albumin (3.2-5.2) g/dL Globulin (2-4) g/dL Albumin/Globulin Ratio (1-3) Procalcitonin (<0.6) ng/mL Urine Color Straw Urine Appearance Clear Urine pH 6.0 (5-9) Ur Specific [place] 1.010 (1.010-1.030) Urine Protein Negative (Negative) Urine Ketones Negative (Negative) Urine Blood Negative (Negative) Urine Nitrate Negative (Negative) Urine Bilirubin Negative (Negative) Urine Urobilinogen Negative (Negative) Ur Leukocyte Esterase Negative (Negative) Urine Glucose Negative (Negative) 08/17/17 08/17/17 08/17/17 Range/Units 16:59 16:59 16:59 WBC (3.5-10.8) 10^3/ul RBC (4.00-5.40) 10^6/ul Hgb (12.0-16.0) g/dl Hct (35-47) % MCV (80-97) fL MCH (27-31) pg MCHC (31-36) g/dl RDW (10.5-15) % Plt Count (150-450) 10^3/ul MPV (7.4-10.4) um3 Neut % (Auto) (38-83) % Lymph % (Auto) (25-47) % Evangeline % (Auto) (0-7) % Eos % (Auto) (0-6) % Baso % (Auto) (0-2) % Absolute Neuts (auto) (1.5-7.7) 10^3/ul Absolute Lymphs (auto) (1.0-4.8) 10^3/ul Absolute Monos (auto) (0-0.8) 10^3/ul Absolute Eos (auto) (0-0.6) 10^3/ul Absolute Basos (auto) (0-0.2) 10^3/ul Absolute Nucleated RBC 10^3/ul Nucleated RBC % INR (Anticoag Therapy) (0.77-1.02) APTT (26.0-36.3) seconds Sodium 135 (135-145) mmol/L Potassium 4.5 (3.5-5.0) mmol/L Chloride 99 L (101-111) mmol/L Carbon Dioxide 28 (22-32) mmol/L Anion Gap 8 (2-11) mmol/L BUN 20 (6-24) mg/dL Creatinine 0.94 (0.51-0.95) mg/dL Est GFR ( Amer) 70.4 (>60) Est GFR (Non-Af Amer) 58.2 (>60) BUN/Creatinine Ratio 21.3 H (8-20) Glucose 114 H (70-100) mg/dL Lactic Acid 1.7 (0.5-2.0) mmol/L Calcium 9.5 (8.6-10.3) mg/dL Total Bilirubin 0.20 (0.2-1.0) mg/dL AST 27 (13-39) U/L ALT 35 (7-52) U/L Alkaline Phosphatase 127 H (34-104) U/L Total Creatine Kinase 39 (10-223) U/L Troponin I 0.01 (<0.04) ng/mL C-Reactive Protein 15.70 H (<8.01) mg/L B-Natriuretic Peptide 19 ( - 100) pg/mL Total Protein 7.6 (6.4-8.9) g/dL Albumin 4.0 (3.2-5.2) g/dL Globulin 3.6 (2-4) g/dL Albumin/Globulin Ratio 1.1 (1-3) Procalcitonin (<0.6) ng/mL Urine Color Urine Appearance Urine pH (5-9) Ur Specific [place] (1.010-1.030) Urine Protein (Negative) Urine Ketones (Negative) Urine Blood (Negative) Urine Nitrate (Negative) Urine Bilirubin (Negative) Urine Urobilinogen (Negative) Ur Leukocyte Esterase (Negative) Urine Glucose (Negative) 08/17/17 Range/Units 16:59 WBC (3.5-10.8) 10^3/ul RBC (4.00-5.40) 10^6/ul Hgb (12.0-16.0) g/dl Hct (35-47) % MCV (80-97) fL MCH (27-31) pg MCHC (31-36) g/dl RDW (10.5-15) % Plt Count (150-450) 10^3/ul MPV (7.4-10.4) um3 Neut % (Auto) (38-83) % Lymph % (Auto) (25-47) % Evangeline % (Auto) (0-7) % Eos % (Auto) (0-6) % Baso % (Auto) (0-2) % Absolute Neuts (auto) (1.5-7.7) 10^3/ul Absolute Lymphs (auto) (1.0-4.8) 10^3/ul Absolute Monos (auto) (0-0.8) 10^3/ul Absolute Eos (auto) (0-0.6) 10^3/ul Absolute Basos (auto) (0-0.2) 10^3/ul Absolute Nucleated RBC 10^3/ul Nucleated RBC % INR (Anticoag Therapy) (0.77-1.02) APTT (26.0-36.3) seconds Sodium (135-145) mmol/L Potassium (3.5-5.0) mmol/L Chloride (101-111) mmol/L Carbon Dioxide (22-32) mmol/L Anion Gap (2-11) mmol/L BUN (6-24) mg/dL Creatinine (0.51-0.95) mg/dL Est GFR ( Amer) (>60) Est GFR (Non-Af Amer) (>60) BUN/Creatinine Ratio (8-20) Glucose (70-100) mg/dL Lactic Acid (0.5-2.0) mmol/L Calcium (8.6-10.3) mg/dL Total Bilirubin (0.2-1.0) mg/dL AST (13-39) U/L ALT (7-52) U/L Alkaline Phosphatase (34-104) U/L Total Creatine Kinase (10-223) U/L Troponin I (<0.04) ng/mL C-Reactive Protein (<8.01) mg/L B-Natriuretic Peptide ( - 100) pg/mL Total Protein (6.4-8.9) g/dL Albumin (3.2-5.2) g/dL Globulin (2-4) g/dL Albumin/Globulin Ratio (1-3) Procalcitonin < 0.1 (<0.6) ng/mL Urine Color Urine Appearance Urine pH (5-9) Ur Specific [place] (1.010-1.030) Urine Protein (Negative) Urine Ketones (Negative) Urine Blood (Negative) Urine Nitrate (Negative) Urine Bilirubin (Negative) Urine Urobilinogen (Negative) Ur Leukocyte Esterase (Negative) Urine Glucose (Negative) Microbiology and Other Data: Microbiology 08/17/17 22:24 Nasal Screen MRSA (PCR) - Final Nasal Mrsa Not Detected Assess/Plan/Problems-Billing Assessment: 76 yo female with a PMH of COPD, anxiety/depression, hx of aspergillus and was on tx for 1 year (date?) who presents to the ED on 08/17 for after a mechanical fall from a sitting position who was found to meet SIRs criteria secondary to COPD exacerbation, and a L radial head contusion - Patient Problems (1) SIRS (systemic inflammatory response syndrome) Comment: - suspect COPD exacerbation vs bronchitis. - resolved. No leukocytosis or lactic acidosis. - blood cx NGD 1 (2) COPD exacerbation Comment: - improving. Titrate O2 down as tolerates with goal O2 sat 90-94% - start PO prednisone 40 mg daily for 5 days. - continue azithromycin - Start scheduled Duonebs Q6 hr (recommended by Dr. Rodriguez) - as outpatient she should be DC home on Duonebs Q12 hours, and Pulmicort Q12. -Obtain sputum cx (3) Radial head fracture Comment: - Appreciate Ortho consult. Appears to be more of a contusion. Ok to not wear sling. - pt has no pain. Treat with APAP as needed (4) Hyponatremia Comment: - Hx of hyponatremia. Suspect dehydration with poor PO intake. Plan to give 1 Liter of NS and repeat in am. (5) Depression Comment: - with anxiety - continue ativan, hold klonopin, and increase Ativan to TID. - continue Effexor (6) History of aspergillosis Comment: - previous hx per daughter and was on treatment x1 year. Would like to follow up with Dr. Adames as outpt as she had not had any follow up with ID. (7) DVT prophylaxis Comment: HSQ (8) DNR (do not resuscitate) Status and Disposition: inpatient. D/C to her shelter when medically stable.
[2017-08-19] MEDS ORDERED: NS 0.9% 1000 ML* 1,000 ML IV SCH (13:15)
[2017-08-19] MEDS: LORazepam TAB(*) 0.5 MG PO PRN (14:02)
[2017-08-19] MEDS: Azithromycin TAB* 250 MG PO SCH (18:08)
[2017-08-19] MEDS: Venlafaxine EXT RELEASE CAP* 75 MG PO SCH (20:12)
[2017-08-19] MEDS: oxyCODONE TAB* 5 MG TAB PO PRN (20:13)
[2017-08-19] MEDS: Albuterol/Ipratropium NEB.SOL* Albuterol 2.5 MG/Ipratropium 0.5 MG 3 ML INH SCH (20:43)
--- NOTE | 2017-08-19 21:08 | CONS ---
PULMONARY CONSULTATION REPORT: DATE OF CONSULT: 08/19/17 CONSULTATION REQUESTED BY: Ciara Wiley NP REASON FOR CONSULT: Evaluation of COPD and management recommendations. REASON FOR ADMISSION: Fall. HISTORY OF PRESENT ILLNESS: The patient is a 76-year-old female with a history of COPD, anxiety/depression, prior exposure to mold/fungus, treated with voriconazole, with progressively worsening course recently, currently in [facility]iary. The patient was going for a visit to see primary care physician when her daughter was pushing her in the wheelchair, which came across a sidewalk crack resulting in the fall backwards striking her head against the floor. No loss of consciousness, headache, nausea, vomiting, chest pain, visual pains or other focal neurological symptoms post. The patient also suffered trauma to her elbow. CT brain did not reveal any acute abnormalities. X-ray of the left elbow showed impacted radial head fracture and surrounding hematoma. The patient also was noted to be hypoxemic with O2 saturations into 70s and was admitted for further evaluation and management post fall, also for management of acute COPD exacerbation. I have seen and examined the patient at bedside. She is known to me from prior outpatient evaluation. Her daughter is at bedside who is able to provide much of the history. The patient's reports that her shortness of breath has been gradually worsening over the past few days to weeks. The patient was shifted to a new penitentiary and daughter feels she is not able to get the same care. The patient also has history of thick sputum production and has been on nebulizer treatments and saline nebulizers. The patient has trouble coordinating inhaler usage in spite of multiple attempts and was started on nebulizers. Her primary care physician [facility] trying to switch her to inhalers again, which resulted in worsening of her shortness of breath. No fevers or chills at home. No chest pains, nausea, vomiting or diarrhea. The patient reports yellow phlegm recently and she has significant cough at her baseline. PAST MEDICAL HISTORY: 1. COPD. 2. Anxiety/depression. 3. Bronchiectasis. 4. History of mold and fungal pneumonia, treated with voriconazole. PAST SURGICAL HISTORY: Appendectomy. MEDICATIONS AT HOME: 1. Acetaminophen. 2. Albuterol. 3. Aspirin. 4. Budesonide nebulizer. 5. Cholecalciferol. 6. Ipratropium nebulizer. 7. Ativan. 8. Oral rinse with Biotene. 9. Ranitidine. 10. Saline. 11. Senna. 12. Tiotropium. 13. Venlafaxine. 14. Clonazepam. 15. Guaifenesin. ALLERGIES: Hives. FAMILY HISTORY: Asthma. SOCIAL HISTORY: Quit smoking 20 years ago, 30-pack year smoking history. No alcohol or drug abuse. Currently residing in penitentiary in [place]. The patient is DNR/DNI. REVIEW OF SYSTEMS: All 14 systems reviewed and as per HPI. Review of systems is slightly limited because the patient being a poor historian. PHYSICAL EXAM: The patient is in bed, lying on the side, in no apparent distress. Vital Signs: Temperature 98.9, pulse 90 beats per minute, respiratory rate 20 per minute, O2 sat 96% on 3 L, blood pressure 114/60. HEENT : Pupils are equal, reactive to light. Mucous membranes moist. Lungs: Diminished air entry bilaterally. Cardiovascular: S1, S2 present. Regular. Abdomen: Soft, nontender, nondistended. Bowel sounds present. Extremities: Hematoma in left elbow area and tenderness to touch. Neuro: No focal deficits. Alert, awake, oriented x3. Skin: Bruise in the left elbow and in the occiput area. DIAGNOSTIC STUDIES/LAB DATA: WBC count 9.5, hemoglobin 9.5, hematocrit 29, platelet count 455. Sodium 129, potassium 3.9, chloride 92, bicarb 30, BUN 16, creatinine 0.63. Procalcitonin less than 0.1. BNP 19. UA was negative. Chest x-ray performed on admission was personally reviewed by me - evidence of hyperinflation consistent with COPD and no acute airspace opacities. IMPRESSION AND RECOMMENDATIONS: 76-year-old female with poor performance status with significant shortness of breath on exertion, cough with productive phlegm, history of bronchiectasis, history of prior fungal pneumonia with ongoing symptoms, currently at penitentiary. The patient admitted status post fall and also for a management of acute chronic obstructive pulmonary disease exacerbation. The patient reports her breathing being stable currently. She has never been able to tolerate the inhalers. She definitely would benefit from nebulizers. She has difficulty coordinating with the inhalers in spite of teaching. Would continue with nebulizers. Would recommend DuoNeb q.4 hours while awake. Would also recommend Pulmicort nebulizer q.12 hours. The patient also reports having thick phlegm, however given evidence of wheezing and bronchospasm would not recommend hypertonic saline nebs at this time. Thank you for allowing me to participate in the care of your patient. Will follow up with you. [id number]/KAELA #: [id number] EARLINE
[2017-08-20] MEDS: Albuterol/Ipratropium NEB.SOL* Albuterol 2.5 MG/Ipratropium 0.5 MG 3 ML INH SCH ×4 (00:26→20:02)
[2017-08-20] MEDS: LORazepam TAB(*) 0.5 MG PO PRN ×2 (00:39→17:02)
[2017-08-20] MEDS: Heparin VIAL(*) 5000 UNITS/ML VIAL (FIVE THOUSAND) SUBCUT SCH ×3 (05:35→21:15)
[2017-08-20] MEDS: Omeprazole CAP* 20 MG PO SCH (05:35)
[2017-08-20 06:37] LABS: ABS Basophils 0 10^3/ul (0-0.2); ABS Eosinophils 0.3 10^3/ul (0-0.6); ABS Lymphocytes 1.9 10^3/ul (1.0-4.8); ABS Monocytes 0.7 10^3/ul (0-0.8); ABS Neutrophils 4.8 10^3/ul (1.5-7.7); ABS Nucleated RBC 0 10^3/ul; Eosinophil % 3.7 % (0-6); Hematocrit 28 % (35-47); Hemoglobin 9.2 g/dl (12.0-16.0); Lymphocyte % 24.9 % (25-47); Mean Corpuscular HGB Conc 33 g/dl (31-36); Mean Corpuscular Hemoglobin 27 pg (27-31); Mean Corpuscular Volume 82 fL (80-97); Mean Platelet Volume 7.5 um3 (7.4-10.4); Nucleated Red Blood Cells % 0; Platelet Count 403 10^3/ul (150-450); Red Cell Distribution Width 20 % (10.5-15); White Blood Count 7.8 10^3/ul (3.5-10.8)
[2017-08-20 06:40] LABS: EGFR Non-African American 87.5 (>60)
[2017-08-20] MEDS: Tiotropium CAP.INH* CAP.INH/18 MCG (USE ORDER SET !) INH SCH (07:36)
[2017-08-20] MEDS: Mometasone/Formoter 200/5 MDI INH SCH ×2 (07:36→20:02)
[2017-08-20] MEDS: Famotidine TAB* 20 MG PO SCH (08:04)
[2017-08-20] MEDS: predniSONE TAB* 20 MG PO SCH (08:05)
[2017-08-20] MEDS: Docusate CAP* 100 MG PO SCH ×2 (08:05→21:15)
[2017-08-20] MEDS: Aspirin EC TAB* 81 MG TAB.EC PO SCH (08:05)
[2017-08-20] MEDS: oxyCODONE TAB* 5 MG TAB PO PRN ×2 (08:06→21:15)
--- NOTE | 2017-08-20 12:39 | PN ---
Subjective Date of Service: 08/20/17 Interval History: Ms. Elliott reports that she feels terrible but is not able to offer any clear complaint. She appears to be anxious and confused. She denies chest pain or SOB. Objective Active Medications: Acetaminophen (Tylenol Tab*) 650 mg PO Q6H PRN Albuterol/Ipratropium (Duoneb (Albuterol 2.5 Mg/Ipratropium 0.5 Mg)) 1 neb INH [id number] AWAKE [facility] Aspirin (Aspirin Ec Tab*) 81 mg PO DAILY [facility] Azithromycin (Zithromax Tab*) 250 mg PO 1800 [facility] Device (Tiotropium Inhaler Device*) 1 each .SEE ORDER .USE w/ SPIRIVA CAPS [facility] Docusate Sodium (Colace Cap*) 200 mg PO BID [facility] Famotidine (Pepcid Tab*) 10 mg PO DAILY [facility]; Protocol Guaifenesin (Robitussin*) 5 ml PO Q12H PRN Heparin Sodium (Porcine) (Heparin Vial(*)) 5,000 units SUBCUT Q8HR [facility] Lorazepam (Ativan Tab(*)) 0.5 mg PO Q8H PRN Melatonin (Melatonin) 3 mg PO BEDTIME PRN; Protocol Mometasone Furoate/Formoterol Fumar (Dulera 200/5 Mdi*) 2 puff INH BID [facility] Omeprazole (Prilosec Cap*) 20 mg PO DAILY@0600 [facility] Ondansetron HCl (Zofran Odt Tab*) 4 mg PO Q6H PRN Oxycodone HCl (Roxycodone Tab*) 5 mg PO Q6H PRN Prednisone (Deltasone Tab*) 40 mg PO DAILY [facility] Senna (Senokot Tab*) 2 tab PO DAILY PRN Tiotropium [place] (Spiriva Cap.Inh*) 1 cap INH DAILY [facility] Tramadol HCl (Ultram*) 50 mg PO Q6H PRN Venlafaxine HCl (Effexor Xr Cap*) 150 mg PO BEDTIME [facility] Vital Signs: Temp Pulse Resp BP Pulse Ox 98.8 F 76 18 137/59 100 08/20/17 08:03 08/20/17 08:03 08/20/17 08:06 08/20/17 08:03 08/20/17 08:03 Oxygen Devices in Use Now: Nasal Cannula Appearance: Elderly female lying in bed in NAD Eyes: No Scleral Icterus Ears/Nose/Mouth/Throat: Mucous Membranes Moist Neck: Trachea Midline Respiratory: Symmetrical Chest Expansion and Respiratory Effort, Clear to Auscultation Cardiovascular: NL Sounds; No Murmurs; No JVD, No Edema Abdominal: NL Sounds; No Tenderness; No Distention Lymphatic: No Cervical Adenopathy Extremities: No Edema Skin: No Rash or Ulcers Neurological: NL Muscle Strength and Tone, - - Alert, oriented to self, confused about date, states that her mother and father are here when asked about family members in the area Nutrition: Taking PO's Result Diagrams: 08/20/17 05:47 08/20/17 05:47 Additional Lab and Data: . Microbiology and Other Data: . Assess/Plan/Problems-Billing Assessment: Ms. Elliott is a 76 yo female with a PMH of COPD, anxiety/depression, hx of aspergillus and was on tx for 1 year (date?) who presents to the ED on 08/17 for after a mechanical fall from a sitting position who was found to meet SIRs criteria secondary to COPD exacerbation, and a L radial head contusion - Patient Problems (1) COPD exacerbation Comment: - Improving. Titrate O2 down as tolerates with goal O2 sat 90-94%, now on 2L NC - Continue PO prednisone 40 mg daily for 5 days. Continue azithromycin. Continue scheduled Duonebs Q6 hr (recommended by Dr. Rodriguez) - as outpatient she should be DC home on Duonebs Q12 hours, and Pulmicort Q12. (2) History of aspergillosis Comment: - Previous hx per daughter and was on treatment x1 year. Would like to follow up with Dr. Adames as outpt as she had not had any follow up with ID. (3) Hyponatremia Comment: - Mild, improved. (4) Radial head fracture Comment: - Appreciate Ortho consult. Appears to be more of a contusion. Ok to not wear sling. - pt has no pain. Treat with APAP as needed (5) SIRS (systemic inflammatory response syndrome) Comment: - suspect COPD exacerbation vs bronchitis. - resolved. No leukocytosis or lactic acidosis. - blood cx NGD (6) Depression Comment: - with anxiety - continue ativan, hold klonopin, and increase Ativan to TID. - continue Effexor (7) DVT prophylaxis Comment: HSQ (8) DNR (do not resuscitate) Status and Disposition: inpatient. Anticipate discharge to [facility] [place] when medically stable.
[2017-08-20] MEDS: traMADol TAB* 50 MG PO PRN (17:01)
[2017-08-20] MEDS: Azithromycin TAB* 250 MG PO SCH (17:02)
[2017-08-20] MEDS ORDERED: Albuterol 2.5 MG/3 ML NEB.SOL* (0.083%) INH PRN (20:14)
[2017-08-20] MEDS: Venlafaxine EXT RELEASE CAP* 75 MG PO SCH (21:16)
[2017-08-21] MEDS: Omeprazole CAP* 20 MG PO SCH (06:04)
[2017-08-21] MEDS: Heparin VIAL(*) 5000 UNITS/ML VIAL (FIVE THOUSAND) SUBCUT SCH ×3 (06:14→22:00)
[2017-08-21] MEDS: Mometasone/Formoter 200/5 MDI INH SCH ×2 (07:36→19:14)
[2017-08-21] MEDS: Tiotropium CAP.INH* CAP.INH/18 MCG (USE ORDER SET !) INH SCH (07:36)
--- NOTE | 2017-08-21 07:54 | PN ---
Subjective Date of Service: 08/21/17 Interval History: Ms. Elliott reports that she is feeling somewhat better in terms of her breathing but continues to have nausea and dizziness which has been a problem for her for several years. She does not currently feel dizzy but she does have nausea whenever she sits up. She has been following outpatient with GI for this complaint. Objective Active Medications: Acetaminophen (Tylenol Tab*) 650 mg PO Q6H PRN Albuterol (Ventolin 2.5 Mg/3 Ml Neb.Hanna*) 2.5 mg INH Q2H PRN Aspirin (Aspirin Ec Tab*) 81 mg PO DAILY JAMES Azithromycin (Zithromax Tab*) 250 mg PO 1800 [facility] Device (Tiotropium Inhaler Device*) 1 each .SEE ORDER .USE w/ SPIRIVA CAPS JAMES Docusate Sodium (Colace Cap*) 200 mg PO BID JAMES Famotidine (Pepcid Tab*) 10 mg PO DAILY JAMES; Protocol Guaifenesin (Robitussin*) 5 ml PO Q12H PRN Heparin Sodium (Porcine) (Heparin Vial(*)) 5,000 units SUBCUT Q8HR [facility] Lorazepam (Ativan Tab(*)) 0.5 mg PO Q8H PRN Melatonin (Melatonin) 3 mg PO BEDTIME PRN; Protocol Mometasone Furoate/Formoterol Fumar (Dulera 200/5 Mdi*) 2 puff INH BID [facility] Omeprazole (Prilosec Cap*) 20 mg PO DAILY@0600 [facility] Ondansetron HCl (Zofran Odt Tab*) 4 mg PO Q6H PRN Oxycodone HCl (Roxycodone Tab*) 5 mg PO Q6H PRN Prednisone (Deltasone Tab*) 40 mg PO DAILY [facility] Senna (Senokot Tab*) 2 tab PO DAILY PRN Tiotropium [place] (Spiriva Cap.Inh*) 1 cap INH DAILY JAMES Tramadol HCl (Ultram*) 50 mg PO Q6H PRN Venlafaxine HCl (Effexor Xr Cap*) 150 mg PO BEDTIME [facility] Vital Signs: Temp Pulse Resp BP Pulse Ox 97.5 F 78 18 128/65 98 08/21/17 04:56 08/21/17 07:43 08/21/17 07:43 08/21/17 04:56 08/21/17 07:43 Oxygen Devices in Use Now: Nasal Cannula Appearance: Elderly female lying in bed NAD Eyes: No Scleral Icterus Ears/Nose/Mouth/Throat: Mucous Membranes Moist Neck: Trachea Midline Respiratory: Symmetrical Chest Expansion and Respiratory Effort, Clear to Auscultation Cardiovascular: NL Sounds; No Murmurs; No JVD, No Edema Abdominal: NL Sounds; No Tenderness; No Distention Lymphatic: No Cervical Adenopathy Extremities: No Edema Skin: No Rash or Ulcers Neurological: Alert and Oriented x 3, NL Muscle Strength and Tone Nutrition: Taking PO's Result Diagrams: 08/20/17 05:47 08/20/17 05:47 Additional Lab and Data: . Microbiology and Other Data: . Assess/Plan/Problems-Billing Assessment: Ms. Elliott is a 76 yo female with a PMH of COPD, anxiety/depression, hx of aspergillus and was on tx for 1 year (date?) who presents to the ED on 08/17 for after a mechanical fall from a sitting position who was found to meet SIRs criteria secondary to COPD exacerbation, and a L radial head contusion - Patient Problems (1) COPD exacerbation Comment: - Improving. Titrate O2 down as tolerates with goal O2 sat 90-94%, now on 2L NC - Prednisone stopped due to affect on anxiety and confusion. Continue azithromycin. Continue scheduled Duonebs Q6 hr (recommended by Dr. Rodriguez) - as outpatient she should be DC home on Duonebs Q12 hours, and Pulmicort Q12. (2) History of aspergillosis Comment: - Previous hx per daughter and was on treatment x1 year. Would like to follow up with Dr. Adames as outpt as she had not had any follow up with ID. - Patient and daughter worried that her symptoms of vertigo, nausea, and anxiety were caused by aspergillus, I advised that aspergillus did not cause these types of symptoms but that she could follow with her PCP or ID. (3) Nausea Comment: - Tolerating oral intake. - Chronic problem without clear etiology, follow with GI outpatient. - Recommended that she be tested outpatient for SIBO and consider trying an alternate motility agent such as domperidone. (4) Hyponatremia Comment: - Mild, improved. (5) Radial head fracture Comment: - Appreciate Ortho consult. Appears to be more of a contusion. Ok to not wear sling. - pt has no pain. Treat with APAP as needed (6) SIRS (systemic inflammatory response syndrome) Comment: - suspect COPD exacerbation vs bronchitis. - resolved. No leukocytosis or lactic acidosis. - blood cx NGD (7) Depression Comment: - with anxiety - continue ativan, hold klonopin, and increase Ativan to TID. - continue Effexor (8) Vertigo Comment: - Chronic intermittent problem - Added scopolomine. (9) DVT prophylaxis Comment: HSQ (10) DNR (do not resuscitate) Status and Disposition: inpatient. Discharge to [place] in [place].
[2017-08-21] MEDS: predniSONE TAB* 20 MG PO SCH (10:06)
[2017-08-21] MEDS: Docusate CAP* 100 MG PO SCH ×2 (10:06→21:13)
[2017-08-21] MEDS: Aspirin EC TAB* 81 MG TAB.EC PO SCH (10:07)
[2017-08-21] MEDS: Famotidine TAB* 20 MG PO SCH (10:07)
[2017-08-21] MEDS: LORazepam TAB(*) 0.5 MG PO PRN ×2 (15:33→22:22)
--- NOTE | 2017-08-21 16:11 | DS ---
CC: Dr. Puente DATE OF ADMISSION: 08/17/2017. DATE OF DISCHARGE: 08/21/2017. ATTENDING PHYSICIAN: Dr. Pablo Cedillo* (dictation provided by Nayeli Mckeon NP) . PRIMARY DIAGNOSES: 1. COPD exacerbation. 2. Left elbow contusion. SECONDARY DIAGNOSES: 1. Anxiety. 2. Depression. 3. 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 MEDICATIONS AT THE TIME OF DISCHARGE: 1. Scopolamine patch q.72 hours. 2. Venlafaxine 150 mg p.o. at bedtime. 3. Spiriva one cap inhaled daily. 4. Senna two tabs p.o. daily prn. 5. Saline nasal spray two sprays both nares b.i.d. 6. Ranitidine 75 mg p.o. daily. 7. Lorazepam 0.5 mg p.o. q.12 hours prn. 8. Ipratropium one vial inhaled q.6 hours. 9. Guaifenesin 30 mg p.o. q.12 hours prn. 10. Aspirin with acetaminophen and caffeine one tab p.o. daily. 11. Clonazepam 0.5 mg p.o. b.i.d. prn. 12. Cholecalciferol 4,000 units p.o. daily. 13. Budesonide 0.25 mg inhaled q.12 hours. 14. Biotene oral rinse one spray p.o. q.4 hours prn. 15. Aspirin 81 mg p.o. daily. 16. Albuterol nebulizer 2.5 mg inhaled q.4 hours prn. 17. Tylenol 1,000 mg p.o. b.i.d. 18. Ondansetron 4 mg p.o. q.6 hours prn. 19. Mometasone/Formoterol 200/5 two puffs inhaled b.i.d. 20. Azithromycin 250 mg p.o. times 3 days. 21. Albuterol inhaled q.12 hours around the clock. HOSPITAL COURSE: Ms. Elliott is a 76-year-old female with a past medical history of distant aspergillosis pneumonia treated in 2013 and 2016 at [facility], COPD, tracheobronchomalacia, chronic vertigo, chronic nausea, anxiety and depression who presented to the hospital on 08/17/2017 after a fall at her halfway. Please see the dictated history and physical from Dr. Benito Tate for complete details. In brief, the patient was being rolled in her wheelchair when she tipped and fell out and had immediate injury to her right elbow with concern for possible fracture. She had an x-ray of the left elbow that initially showed concern for an impacted radial head fracture. She had a CT of the brain which was negative. However, it was also noted that she had an O2 saturation in the high 70s on room air and there was concern for possible COPD exacerbation. Ms. Elliott had a chest x-ray that showed the following: No evidence of acute cardiopulmonary disease. She had no leukocytosis or fever. A sputum culture was sent during this admission and is pending. For concern for elbow fracture, she was seen in consultation by Dr. Susana Alfaro from [facility] who felt that there was no fracture and that she only had a contusion. A sling was not needed and that she could use her arm as tolerated. For her COPD exacerbation, Ms. Elliott was seen in consultation by Dr. Rodriguez. I refer you to her note for complete details, but in brief she agreed with treatment of her mild COPD exacerbation with Prednisone and Azithromycin, but also recommended that the patient should have duonebulizers q.12 hours at the halfway per routine. She also recommended the addition of Pulmicort which is ordered. I had a lengthy discussion with Ms. Elliott and her daughter about her overall physical decline over the past four years. The patient and the daughter were very worried that the patient had disseminated aspergillosis or black mold infection. They attributed her possible symptoms of nausea, dizziness, and anxiety to this black mold based on their internet research. I have spoken directly with Dr. Adames and again at length with the family and said that there is no indication that black mold would cause these symptoms. I think the patient does have significant nausea and dizziness. I noted with them that this has been a chronic problem from over four years and that she deserves continued follow-up with her diesel engine specialist and perhaps Neurology, but that both of these symptoms are difficult to diagnose and can be difficult to treat if they are chronic in nature. I suggested that she prioritize follow up with her diesel engine specialist as it seems the nausea seems to be the primary limiting factor in her functionality as she feels most nauseous any time she sits up. I have suggested SIBO testing or possibly adding a motility agent such as Domperidone for this intractable problem. I have also added Scopolamine for the vertigo. Ms. Elliott is medically stable for discharge back to [facility] in [place]. DISPOSITION: To [facility]. ACTIVITY: As tolerated. FOLLOW-UP PLANS: Please follow-up with a gastroenterology, primary care physician, and multiple other specialist per routine. Approximately 60 minutes were spent in the discharge of this patient, more than half that time was spent with the patient at the bedside reviewing the events leading up to and during this hospitalization with her and her daughter, performing the physical examination, and reviewing the plan of care. NAYELI MCKEON NP [id number]/[facility] #: [id number] [place]
[2017-08-21] MEDS: Azithromycin TAB* 250 MG PO SCH (17:05)
[2017-08-21] MEDS: Venlafaxine EXT RELEASE CAP* 75 MG PO SCH (21:12)
[2017-08-22] MEDS: Tiotropium CAP.INH* CAP.INH/18 MCG (USE ORDER SET !) INH SCH (07:31)
[2017-08-22] MEDS: Mometasone/Formoter 200/5 MDI INH SCH (07:32)
[2017-08-22] MEDS: Heparin VIAL(*) 5000 UNITS/ML VIAL (FIVE THOUSAND) SUBCUT SCH (07:43)
[2017-08-22] MEDS: Omeprazole CAP* 20 MG PO SCH (07:43)
[2017-08-22] MEDS: Docusate CAP* 100 MG PO SCH (07:49)
[2017-08-22] MEDS: Aspirin EC TAB* 81 MG TAB.EC PO SCH (07:50)
[2017-08-22] MEDS: Famotidine TAB* 20 MG PO SCH (07:51)
--- NOTE | 2017-08-22 08:02 | PN ---
Subjective Date of Service: 08/22/17 Objective Active Medications: Acetaminophen (Tylenol Tab*) 650 mg PO Q6H PRN Albuterol (Ventolin 2.5 Mg/3 Ml Neb.Hanna*) 2.5 mg INH Q2H PRN Aspirin (Aspirin Ec Tab*) 81 mg PO DAILY JAMES Device (Tiotropium Inhaler Device*) 1 each .SEE ORDER .USE w/ SPIRIVA CAPS JAMES Docusate Sodium (Colace Cap*) 200 mg PO BID JAMES Famotidine (Pepcid Tab*) 10 mg PO DAILY JAMES; Protocol Guaifenesin (Robitussin*) 5 ml PO Q12H PRN Heparin Sodium (Porcine) (Heparin Vial(*)) 5,000 units SUBCUT Q8HR [facility] Lorazepam (Ativan Tab(*)) 0.5 mg PO Q8H PRN Melatonin (Melatonin) 3 mg PO BEDTIME PRN; Protocol Mometasone Furoate/Formoterol Fumar (Dulera 200/5 Mdi*) 2 puff INH BID JAMES Omeprazole (Prilosec Cap*) 20 mg PO DAILY@0600 [facility] Ondansetron HCl (Zofran Odt Tab*) 4 mg PO Q6H PRN Oxycodone HCl (Roxycodone Tab*) 5 mg PO Q6H PRN Senna (Senokot Tab*) 2 tab PO DAILY PRN Tiotropium [place] (Spiriva Cap.Inh*) 1 cap INH DAILY JAMES Tramadol HCl (Ultram*) 50 mg PO Q6H PRN Venlafaxine HCl (Effexor Xr Cap*) 150 mg PO BEDTIME [facility] Vital Signs - 8 hr 08/22/17 08/22/17 02:00 05:56 Temperature 97.3 F Pulse Rate 89 Respiratory 18 16 Rate Blood Pressure 113/94 (mmHg) O2 Sat by Pulse 91 Oximetry Oxygen Devices in Use Now: Nasal Cannula Result Diagrams: 08/20/17 05:47 08/20/17 05:47 Additional Lab and Data: . Microbiology and Other Data: . Assess/Plan/Problems-Billing Assessment: Ms. Elliott is a 76 yo female with a PMH of COPD, anxiety/depression, hx of aspergillus and was on tx for 1 year (date?) who presents to the ED on 08/17 for after a mechanical fall from a sitting position who was found to meet SIRs criteria secondary to COPD exacerbation, and a L radial head contusion - Patient Problems (1) COPD exacerbation Comment: - Improving. Titrate O2 down as tolerates with goal O2 sat 90-94%, now on 2L NC - Prednisone stopped due to affect on anxiety and confusion. Continue azithromycin. Continue scheduled Duonebs Q6 hr (recommended by Dr. Rodriguez) - as outpatient she should be DC home on Duonebs Q12 hours, and Pulmicort Q12. (2) History of aspergillosis Comment: - Previous hx per daughter and was on treatment x1 year. Would like to follow up with Dr. Adames as outpt as she had not had any follow up with ID. - Patient and daughter worried that her symptoms of vertigo, nausea, and anxiety were caused by aspergillus, I advised that aspergillus did not cause these types of symptoms but that she could follow with her PCP or ID. (3) Nausea Comment: - Tolerating oral intake. - Chronic problem without clear etiology, follow with GI outpatient. - Recommended that she be tested outpatient for SIBO and consider trying an alternate motility agent such as domperidone. (4) Hyponatremia Comment: - Mild, improved. (5) Radial head fracture Comment: - Appreciate Ortho consult. Appears to be more of a contusion. Ok to not wear sling. - pt has no pain. Treat with APAP as needed (6) SIRS (systemic inflammatory response syndrome) Comment: - suspect COPD exacerbation vs bronchitis. - resolved. No leukocytosis or lactic acidosis. - blood cx NGD (7) Depression Comment: - with anxiety - continue ativan, hold klonopin, and increase Ativan to TID. - continue Effexor (8) Vertigo Comment: - Chronic intermittent problem - Added scopolomine. (9) DVT prophylaxis Comment: HSQ (10) DNR (do not resuscitate) Status and Disposition: inpatient. Discharge to [place] in [place].
[2017-08-22 08:41] VITALS: BP 122/60
== END 2017-08-22 11:27 | DRG 191 ==
LOC: ED 16:07 → MED 21:06
PROVIDERS: ADMIT Hospitalist; ATTEND Internal Medicine
DX: J44.1 Chronic obstructive pulmonary disease with (acute) exacerbation (principal); R65.10 Systemic inflammatory response syndrome (SIRS) of non-infectious origin without acute organ dysfunction; S50.02XA Contusion of left elbow, initial encounter; F32.9 Major depressive disorder, single episode, unspecified; F41.9 Anxiety disorder, unspecified; W01.0XXA Fall on same level from slipping, tripping and stumbling without subsequent striking against object, initial encounter; Z66 Do not resuscitate; K21.9 Gastro-esophageal reflux disease without esophagitis; R42 Dizziness and giddiness; R11.0 Nausea; J98.09 Other diseases of bronchus, not elsewhere classified; E87.1 Hypo-osmolality and hyponatremia; Z86.718 Personal history of other venous thrombosis and embolism; Z88.0 Allergy status to penicillin; Z87.891 Personal history of nicotine dependence; Z87.01 Personal history of pneumonia (recurrent); Z79.82 Long term (current) use of aspirin; Z82.5 Family history of asthma and other chronic lower respiratory diseases; Z79.52 Long term (current) use of systemic steroids; Y92.9 Unspecified place or not applicable
CPT/HCPCS: 36415; 70450; 71046; 80048; 80053; 81003; 82550; 83605; 83880; 84145; 84484; 85025; 85610; 85730; 86140; 87040; 87641; 93005; 94640; 99283; A9270-GY; J0456; J1644; J2060; J2920; J2930; J7512

== ENCOUNTER 2017-10-14 07:36 | Day surgery (SDC) | payer MEDICARE, MEDICAID ==
[~2017-10-14 07:36] MED LIST: Acetaminophen TAB* 325 MG PO PRN; Buffered Lidocaine 0.9% SYRIN* 5 ML/SYR SYRINGE INTRADERM ONE; DiMENhydriNATE IV* 50 MG/ML VIAL IV PUSH PRN
[2017-10-14] MEDS ORDERED: Midazolam* 1 MG/ML 5 ML VIAL (5 MG) ONE (09:11)
[2017-10-14 10:02] VITALS: BP 127/83
[2017-10-14] MEDS ORDERED: Cyclopentolate 1% OPTH.SOL* 2 ML BTL ONE (12:36)
[2017-10-14] MEDS ORDERED: Proparacaine 0.5% OPHTH.SOL* 15 ML BTL ONE (12:36)
[2017-10-14] MEDS ORDERED: Phenylephrine 2.5% OPTH.SOL* 2 ML BTL ONE (12:36)
[2017-10-14] MEDS ORDERED: Lidocaine 2% EPI 1:200000 MPF*10-20 ML VIAL ONE (12:36)
[2017-10-14] MEDS ORDERED: Lidocaine 1%* 5 ML VIAL ONE (12:36)
[2017-10-14] MEDS ORDERED: Povidone Iodine 5% OPTH* 30 ML BTL ONE (12:36)
[2017-10-14] MEDS ORDERED: Ketorolac 0.5% OPHTH (NF) 0.5 % 5 ML BTL ONE (12:36)
[2017-10-14] MEDS ORDERED: Neomycin/Polymy/Dex OPTH.SUSP* MAXITROL 0.1% 5 ML ONE (12:36)
[2017-10-14] MEDS ORDERED: acetaZOLAMIDE TAB* 250 MG ONE (12:36)
--- NOTE | 2017-10-14 15:34 | OP ---
DATE OF OPERATION: 10/14/17 [facility] DATE OF : 44 SURGEON: Ortiz Messina M.D. PREOPERATIVE DIAGNOSIS: Cataract, right eye. POSTOPERATIVE DIAGNOSIS: Cataract, right eye. OPERATIVE PROCEDURE: Extracapsular cataract extraction with IOL implant right eye. DESCRIPTION OF PROCEDURE: The patient was brought to the operating room after being given 1/2% Alcaine with epinephrine drops in the preoperative area. The eye was prepped and draped in the usual sterile fashion. Sterile drape and eyelid speculum were placed. Again, topical 1/2% Alcaine with epinephrine was given. A paracentesis incision was made at the 9 o'clock position with the No.75 blade. Clear cornea incision 2.2 x 2.2-mm was created at the 12 o'clock position starting at the anterior limbus using the 2.2-mm keratome. The anterior chamber was irrigated with 0.4 mL of 1% non-preservative intracameral lidocaine and filled with DisCoVisc. A capsulorrhexis was completed using the cystotome and the Utrata forceps. Hydrodissection was performed with balanced salt solution. The lens nucleus was removed with the Phacoemulsification handpiece without incident. Cortex was removed with the irrigation-aspiration handpiece. The capsular bag was re-inflated using DisCoVisc and an [id number] implant was inserted with the shooter. The irrigation-aspiration handpiece was used to remove all residual DisCoVisc. The eye was refilled with balanced salt solution and the wound checked and found to be watertight. Topical Maxitrol drops were given. [id number]/[facility] #: [id number] [facility]
== END 2017-10-14 09:53 | disposition home or self-care (01) ==
LOC: OREAST 07:36
PROVIDERS: ATTEND Specialist
DX: H25.811 Combined forms of age-related cataract, right eye (principal); Z87.891 Personal history of nicotine dependence; J44.9 Chronic obstructive pulmonary disease, unspecified; F41.8 Other specified anxiety disorders; R42 Dizziness and giddiness; K22.70 Barrett's esophagus without dysplasia
CPT/HCPCS: A9270-GY; J2250; V2632

== ENCOUNTER 2017-10-21 09:28 | Day surgery (SDC) | payer MEDICARE, MEDICAID ==
[~2017-10-21 09:28] MED LIST changes: +Cyclopentolate 1% OPTH.SOL* 2 ML BTL ONE; -DiMENhydriNATE IV* 50 MG/ML VIAL IV PUSH PRN; +Ketorolac 0.5% OPHTH (NF) 0.5 % 5 ML BTL ONE; +Lidocaine 1%* 5 ML VIAL ONE; +Lidocaine 2% EPI 1:200000 MPF*10-20 ML VIAL ONE; +Neomycin/Polymy/Dex OPTH.SUSP* MAXITROL 0.1% 5 ML ONE; +Phenylephrine 2.5% OPTH.SOL* 2 ML BTL ONE; +Povidone Iodine 5% OPTH* 30 ML BTL ONE; +Proparacaine 0.5% OPHTH.SOL* 15 ML BTL ONE; +acetaZOLAMIDE TAB* 250 MG ONE
[2017-10-21] MEDS ORDERED: Midazolam* 1 MG/ML 2 ML VIAL (2 MG) ONE ×2 (11:51→12:25)
[2017-10-21 12:44] VITALS: BP 137/76
--- NOTE | 2017-10-21 13:02 | OP ---
DATE OF OPERATION: 10/21/2017. DATE OF : 1940. SURGEON: Ortiz Messina M.D. PREOPERATIVE DIAGNOSIS: Cataract left eye. POSTOPERATIVE DIAGNOSIS: Cataract left eye. OPERATIVE PROCEDURE: Extracapsular cataract extraction with intraocular lens implant left eye. PROCEDURE: The patient was brought to the operating room after being given 1/2% Alcaine with epineph rine drops in the preoperative area. The eye was prepped and draped in the usual sterile fashion. S terile drape and eyelid speculum were placed. Again, topical 1/2% Alcaine with epinephrine was given . A paracentesis incision was made at the 3 o'clock position with the No.75 blade. Clear cornea inc ision 2.2 x 2.2-mm was created at the 6 o'clock position starting at the anterior limbus using the 2. 2-mm keratome. The anterior chamber was irrigated with 0.4 mL of 1% non-preservative intracameral li docaine and filled with DisCoVisc. A capsulorrhexis was completed using the cystotome and the Utrata forceps. Hydrodissection was performed with balanced salt solution. The lens nucleus was removed wi th the Phacoemulsification handpiece without incident. Cortex was removed with the irrigation-aspira tion handpiece. The capsular bag was re-inflated using DisCoVisc and an [id number] implant was insert ed with the shooter. The irrigation-aspiration handpiece was used to remove all residual DisCoVisc. The eye was refilled with balanced salt solution and the wound checked and found to be watertight. Topical Maxitrol drops were given. [id number]/[facility] #: [id number]
== END 2017-10-21 12:57 | disposition home or self-care (01) ==
LOC: OREAST 09:28
PROVIDERS: ATTEND Specialist
DX: H25.812 Combined forms of age-related cataract, left eye (principal); Z87.891 Personal history of nicotine dependence; J44.9 Chronic obstructive pulmonary disease, unspecified; F41.8 Other specified anxiety disorders; E78.5 Hyperlipidemia, unspecified
CPT/HCPCS: A9270-GY; J2250; V2632